=== PATIENT | female | born 1940 | race Caucasian/White ===

== ENCOUNTER 2017-06-08 21:46 | Inpatient (IN) | payer OTHER, MEDICAID ==
[2017-06-08] MEDS ORDERED: TOBRAMYCIN SULFATE 120 MG in NS 100 ML IV 100 ML IV ONE (21:49)
[2017-06-08] MEDS ORDERED: NS 1000 ML 1,000 ML IV SCH (22:00)
[2017-06-09 00:20] LABS: BASOPHILS % (AUTO) 0.4 % (0.2-1.0); EOSINOPHILS # (AUTO) 0.1 x10^3/uL (0.0-0.2); EOSINOPHILS % (AUTO) 2.4 % (0.9-2.9); HEMATOCRIT 33.6 % (36.0-47.0); HEMOGLOBIN 11.2 g/dL (12.0-16.0); LYMPHOCYTES # (AUTO) 1.5 X10^3/uL (1.3-2.9); LYMPHOCYTES % (AUTO) 28.9 % (21.0-51.0); MEAN CORPUSCULAR HEMOGLOBIN 29.3 pg (27.0-34.0); MEAN CORPUSCULAR HGB CONC 33.2 g/dL (33.0-35.0); MEAN CORPUSCULAR VOLUME 88.3 fL (80.0-100.0); MEAN PLATELET VOLUME 8.1 fL (7.4-11.0); MONOCYTES # (AUTO) 0.3 x10^3/uL (0.3-0.8); MONOCYTES % (AUTO) 6.8 % (0.0-13.0); NEUTROPHILS # (AUTO) 3.1 x10^3/uL (2.2-4.8); NEUTROPHILS % (AUTO) 61.5 % (42.0-75.0); PLATELET COUNT 133 X10^3/uL (150.0-450.0); RED BLOOD COUNT 3.81 X10^6/uL (3.5-5.4); RED CELL DISTRIBUTION WIDTH 14.8 % (11.6-16.5); WHITE BLOOD COUNT 5.1 X10^3/uL (3.6-10.0)
[2017-06-09] MEDS: ROCEPHIN VIAL 1 GM 1 GM in NS 50 ML IV + SPIKE MINIBAG* 50 ML IV SCH ×2 (00:22→10:14)
[2017-06-09 00:49] LABS: ALANINE AMINOTRANSFERASE 20 Units/L (12-78); ALBUMIN 2.7 g/dL (3.4-5.0); ALKALINE PHOSPHATASE 91 Units/L (46-116); ASPARTATE AMINO TRANSFERASE 23 Units/L (15-37); BLOOD UREA NITROGEN 23 mg/dL (7-18); CALCIUM 8.1 mg/dL (8.5-10.1); CARBON DIOXIDE 33.3 mmol/L (21-32); CHLORIDE 100 mmol/L (98-107); COR CA(FOR HYPOALB) 9.1 mg/dL (8.5-10.1); CREATININE 1.53 mg/dL (0.55-1.02); GLUCOSE 102 mg/dL (65-99); MAGNESIUM 2.5 mg/dL (1.7-2.9); SODIUM 136 mmol/L (136-145); TOTAL PROTEIN 6.8 g/dL (6.4-8.2); eGFR BLACK RACES 42 (>60); eGFR NON BLACK RACES 35 (>60)
[2017-06-09 01:27] LABS: BILIRUBIN,URINE NEGATIVE (NEGATIVE); BLOOD/HEMOGLOBIN,URINE 3+ (NEGATIVE); GLUCOSE, URINE NEGATIVE (NEGATIVE); KETONES,URINE NEGATIVE (NEGATIVE); LEUKOCYTE ESTERASE ,URINE 3+ (NEGATIVE); NITRITES,URINE POSITIVE (NEGATIVE); PROTEIN,URINE 2+ (NEGATIVE); UROBILINOGEN,URINE NORMAL (NORMAL)
[2017-06-09 01:35] LABS: APPEARANCE,URINE CLOUDY (CLEAR); BACTERIA,URINE 3+ /HPF (NEGATIVE); COLOR,URINE YELLOW (YELLOW); SQUAMOUS EPITHELIAL CELL,UR FEW /HPF (NEGATIVE)
[2017-06-09] MEDS: MORPHINE SULFATE INJ 2 MG IVP PRN (06:05)
--- NOTE | 2017-06-09 06:33 | RAD ---
HISTORY: Altered mental status, UTI Study: Chest one view Comparison: February 21, 2016 Findings: There is a pacemaker present on the right obscuring a portion of the right mid lung. The heart is up per limits normal in size. The aorta is calcified. No congestive heart failure is noted. No acute al veolar infiltrates are identified. The bony thorax is unremarkable with the exception of glenohumera l degenerative joint disease on the left. IMPRESSION: Lungs clear Reported By:
[2017-06-09] MEDS ORDERED: PROVENTIL NEB TX 0.083% 2.5MG/ 3ML IN PRN (09:35)
[2017-06-09] MEDS ORDERED: SENNOSIDES PO SCH (09:45)
[2017-06-09] MEDS ORDERED: DOCUSATE SODIUM PO SCH (09:45)
[2017-06-09] MEDS ORDERED: PATIENT'S HOME MEDICATION (Rivaroxaban [Xarelto] 20 MG) PO SCH (09:45)
[2017-06-09] MEDS: PriLOSEC PO SCH (11:15)
[2017-06-09] MEDS: COLACE CAP 100 MG PO SCH (11:15)
[2017-06-09] MEDS: LOPRESSOR TAB 25 MG PO SCH (11:15)
[2017-06-09] MEDS: MIRALAX POWDER (1 DOSE 17GM) PO SCH ×2 (11:18→11:21)
[2017-06-09] MEDS: NORCO 7.5/325 MG TAB PO PRN ×2 (11:18→21:23)
[2017-06-09] MEDS: CORDARONE TAB 200 MG PO SCH (11:18)
--- NOTE | 2017-06-09 12:11 | RAD ---
HISTORY: Abdominal tenderness, fever Study: Acute abdominal series Comparison: June 09, 2017 12:22 a.m. Findings: The trachea is midline. The cardiac silhouette is upper limits normal in size. The aorta is calcifi ed.. The lungs are well inflated. There is a questionable right upper lobe infiltrate present repre senting a change from the earlier film. The remainder of the lung melgoza are clear. Follow up of thi s area is recommended. The bony thorax is unremarkable. There is a pacemaker present on the right. Flat plate and upright evaluation of the abdomen demonstrates a normal bowel gas pattern. No pneumop eritoneum is identified.. No pathological soft tissue mass or calcification can be observed. The b emily structures are grossly intact. IMPRESSION: 1. Questionable new right upper lobe infiltrate, follow up of this area is recommended 2. No evidence for acute abdominal pathology identified. Reported By:
[2017-06-09] MEDS: LANOXIN PO SCH (13:13)
[2017-06-09] MEDS: XARELTO PO SCH (18:25)
--- NOTE | 2017-06-09 19:50 | DR.H&P ---
H&P - History & Physical for Day of: H&P Date: 06/08/17 - Chief Complaint Chief Complaint: AMS, FEVER, UTI - Allergies Allergies/Adverse Reactions: Allergies Allergy/AdvReac Type Severity Reaction Status Date / Time tramadol AdvReac Verified 06/08/17 22:43 - History of Present Illness History of Present Illness: 77 WF RESIDENT OF [facility], RECENTLY REVOKED HOSPICE CARE, ADMITTED WITH UTI, FEVER AND AMS. PLAN TO ADMIT FOR IV HYDRATION, BLOOD AND URINE CULTURES. IV ATBX, WILL RESUME HOME MEDS. REPEAT AM LABS - Past Medical History Past Medical History: Anemia, Arthritis, CHF, Coronary Artery Disease, Dementia , GERD, Hypertension, Renal Disease - Past Surgical History Surgical History: Appendectomy, Cholecystectomy, Hysterectomy, Joint Replacement , Ortho Surgery, Tonsillectomy, Other - Family History Family Medical History: Diabetes Mellitus, CT, Coronary Artery Disease, Heart Failure, Sudden Cardiac , Hypertension - Social History Does patient currently use any type of tobacco product: No Have you used tobacco products in the last 12 months: No Type of Tobacco Use: None Alcohol Use: None Drug Use: None - Medications Home Medications: Albuterol Neb 2.5MG/ 3Ml [ALBUTEROL NEB 2.5MG/ 3ML *] 1 ea INH Q8H PRN 06/08/17 [History Confirmed 06/08/17] Amiodarone HCl 200 mg PO DAILY 06/08/17 [History Confirmed 06/08/17] Digoxin [LANOXIN TAB 0.125 MG *] 125 mcg PO DAILY 06/08/17 [History Confirmed ] Docusate Sodium [COLACE CAP 100 MG *] 100 mg PO DAILY 06/08/17 [History Confirmed 06/08/17] Gabapentin [NEURONTIN TAB 600 MG *] 600 mg PO TID 06/08/17 [History Confirmed ] Hydrocodone-Acet 7.5 mg/325 mg [NORCO 7.5 MG/325 MG *] 1 ea PO Q4H PRN 06/08/17 [History Confirmed 06/08/17] Lorazepam [ATIVAN 0.5 MG TAB *] 0.5 mg PO Q4H PRN 06/08/17 [History Confirmed ] Metoprolol Tartrate [LOPRESSOR 25 MG *] 12.5 mg PO DAILY 06/08/17 [History Confirmed 06/08/17] Omeprazole 20 mg PO DAILY 06/08/17 [History Confirmed 06/08/17] Ondansetron HCl [ZOFRAN TAB 4 MG *] 4 mg PO Q6H PRN 06/08/17 [History Confirmed 06/08/17] Polyethylene Glycol Pwd Ud [MIRALAX POWDER (17 GM DOSE) *] 17 gm PO Q48H [History Confirmed 06/08/17] Rivaroxaban [Xarelto] 20 mg PO DAILY 06/08/17 [History Confirmed 06/08/17] Sennosides/Docusate Sodium [Senna-S Tablet] 8.6 mg PO DAILY 06/08/17 [History Confirmed 06/08/17] Trazodone HCl [TRAZODONE 50 MG (DESYREL) *] 25 mg PO HS 06/08/17 [History Confirmed 06/08/17] - Review of Systems Constitutional: Fever, Chills, Weakness Eyes: No Symptoms Reported ENT: No Symptoms Reported Respiratory: Shortness of Breath Cardiovascular: No Symptoms Reported Gastrointestinal: Abdominal Pain Genitourinary: Incontinence, Retention Musculoskeletal: Back Pain, Leg Pain Skin: No Symptoms Reported Neurological: Weakness - Physical Exam Vital Signs: Temperature 98.2 F Pulse Rate [Right Brachial] 63 Pulse Rate [Brachial] 65 Pulse Rate 67 Respiratory Rate 18 Blood Pressure [Left Calf] 95/53 Blood Pressure [Left Arm] 119/56 Blood Pressure [Right Arm] 118/58 Blood Pressure 144/69 O2 Sat by Pulse Oximetry 96 Oriented: Normal Eyes: Normal Ear: Normal Nose: Normal Throat: Dry Respiratory: RLL Diminished, LLL Diminished Cardiovascular: Irregular (CONTROLLED RATE) Tenderness: Diffuse Skin: Decreased Turgur Musculoskeletal: Back:Lumbar, Motor Deficit (BILATERAL LOWER EXTREMITY WEAKNESS) Mood Description: Calm Speech Pattern: Clear - Assessment/Plan (1) UTI (urinary tract infection) Qualifiers: Urinary tract infection type: U Hematuria presence: H Indwelling urinary catheter type: I Encounter type: E Status: Acute Plan: ADMIT IV ATBX, URINE CULTURE. IV HYDRATION, REPEAT AM LABS. R/O INFECTIOUS CAUSE CONFUSION, FEVER, WEAKNESS. CBC CMP BC AND UC CXR ON ADMISSION. RESUME HOME MEDS (2) Altered mental status Qualifiers: Altered mental status type: A Coma depth: C Coma timing: C Status: Acute (3) COPD (chronic obstructive pulmonary disease) Qualifiers: COPD type: C Chronic bronchitis type: C Emphysema type: E Status: Chronic (4) Coronary artery disease Qualifiers: Coronary Disease-Associated Artery/Lesion type: C [place] vs. transplanted heart: N Associated angina: A Status: Chronic (5) Essential hypertension, benign Status: Chronic (6) GERD (gastroesophageal reflux disease) Qualifiers: Esophagitis presence: E Status: Chronic
--- NOTE | 2017-06-09 19:51 | PCM.PROG ---
Progress Note - Progress Note for Day of Date: 06/09/17 - Subjective Subjective: ABD PAIN, URINE CULTURE PENDING, CONTINUE IV ATBX - Past Medical Family Social History Past Med/Fam/Surg Hx: No changes since H&P Allergies: Allergies tramadol Adverse Reaction (Verified 06/08/17 22:43) - Review of Systems ROS: No change since H&P - Vital Signs and I&O's Vital Signs: Temperature 98.2 F Pulse Rate [Right Brachial] 63 Pulse Rate [Brachial] 65 Pulse Rate 67 Respiratory Rate 18 Blood Pressure [Left Calf] 95/53 Blood Pressure [Left Arm] 119/56 Blood Pressure [Right Arm] 118/58 Blood Pressure 144/69 O2 Sat by Pulse Oximetry 96 Intake and Output: Intake & Output 06/07/17 06/08/17 06/09/17 06/10/17 11:59 11:59 11:59 11:59 Intake Total 240 748 Output Total 3 Balance 237 748 - Physical Exam Oriented: Normal Eyes: Normal Ear: Normal Nose: Normal Throat: Dry Respiratory: Diminished Cardiovascular: Irregular (CONTROLLED RATE) Tenderness: Diffuse Skin: Decreased Turgur Musculoskeletal: Back:Lumbar, Motor Deficit (BILATERAL LOWER EXTREMITY WEAKNESS) Mood Description: Calm Speech Pattern: Clear - Laboratory and Diagnostics Result Diagrams: 06/08/17 23:40 06/08/17 23:40 Labs: Laboratory WBC 5.1 X10^3/uL (3.6-10.0) 06/08/17 23:40 RBC 3.81 X10^6/uL (3.5-5.4) 06/08/17 23:40 Hgb 11.2 g/dL (12.0-16.0) L 06/08/17 23:40 Hct 33.6 % (36.0-47.0) L 06/08/17 23:40 MCV 88.3 fL (80.0-100.0) 06/08/17 23:40 MCH 29.3 pg (27.0-34.0) 06/08/17 23:40 MCHC 33.2 g/dL (33.0-35.0) 06/08/17 23:40 RDW 14.8 % (11.6-16.5) 06/08/17 23:40 Plt Count 133 X10^3/uL (150.0-450.0) L 06/08/17 23:40 MPV 8.1 fL (7.4-11.0) 06/08/17 23:40 Neut % 61.5 % (42.0-75.0) 06/08/17 23:40 Lymph % 28.9 % (21.0-51.0) 06/08/17 23:40 [place] % 6.8 % (0.0-13.0) 06/08/17 23:40 Eos % 2.4 % (0.9-2.9) 06/08/17 23:40 Baso % 0.4 % (0.2-1.0) 06/08/17 23:40 Neut # 3.1 x10^3/uL (2.2-4.8) 06/08/17 23:40 Lymph # 1.5 X10^3/uL (1.3-2.9) 06/08/17 23:40 [place] # 0.3 x10^3/uL (0.3-0.8) 06/08/17 23:40 Eos # 0.1 x10^3/uL (0.0-0.2) 06/08/17 23:40 Baso # 0.0 X10^3/uL (0.0-0.1) 06/08/17 23:40 Absolute Nucleated RBC 0.0 /100WBC 06/08/17 23:40 Sodium 136 mmol/L (136-145) 06/08/17 23:40 Corrected Sodium TNP 06/08/17 23:40 Potassium 4.5 mmol/L (3.5-5.1) 06/08/17 23:40 Chloride 100 mmol/L (98-107) 06/08/17 23:40 Carbon Dioxide 33.3 mmol/L (21-32) H 06/08/17 23:40 BUN 23 mg/dL (7-18) H 06/08/17 23:40 Creatinine 1.53 mg/dL (0.55-1.02) H 06/08/17 23:40 Est GFR (MDRD) Af Amer 42 (>60) L 06/08/17 23:40 Est GFR (MDRD) Non-Af 35 (>60) L 06/08/17 23:40 Glucose 102 mg/dL (65-99) H 06/08/17 23:40 Calcium 8.1 mg/dL (8.5-10.1) L 06/08/17 23:40 Corrected Calcium 9.1 mg/dL (8.5-10.1) 06/08/17 23:40 Magnesium 2.5 mg/dL (1.7-2.9) 06/08/17 23:40 Total Bilirubin 0.30 mg/dL (0.2-1.0) 06/08/17 23:40 AST 23 Units/L (15-37) 06/08/17 23:40 ALT 20 Units/L (12-78) 06/08/17 23:40 Alkaline Phosphatase 91 Units/L (46-116) 06/08/17 23:40 Total Protein 6.8 g/dL (6.4-8.2) 06/08/17 23:40 Albumin 2.7 g/dL (3.4-5.0) L 06/08/17 23:40 Globulin 4.1 g/dL (2.5-4.5) 06/08/17 23:40 Albumin/Globulin Ratio 0.7 Ratio (1.1-2.1) L 06/08/17 23:40 Specimen Type Clean catch urine 06/09/17 01:14 Urine Color Yellow (YELLOW) 06/09/17 01:14 Urine Appearance Cloudy (CLEAR) 06/09/17 01:14 Urine pH 5.0 (5.0 - 8.0) 06/09/17 01:14 Ur Specific [place] 1.015 (1.000-1.030) 06/09/17 01:14 Urine Protein 2+ (NEGATIVE) 06/09/17 01:14 Urine Glucose (UA) Negative (NEGATIVE) 06/09/17 01:14 Urine Ketones Negative (NEGATIVE) 06/09/17 01:14 Urine Occult Blood 3+ (NEGATIVE) 06/09/17 01:14 Urine Nitrite Positive (NEGATIVE) 06/09/17 01:14 Urine Bilirubin Negative (NEGATIVE) 06/09/17 01:14 Urine Urobilinogen Normal (NORMAL) 06/09/17 01:14 Ur Leukocyte Esterase 3+ (NEGATIVE) 06/09/17 01:14 Urine RBC 10-15 /HPF (NEGATIVE) 06/09/17 01:14 Urine WBC 80-100 /HPF (NEGATIVE) 06/09/17 01:14 Ur Squamous Epith Cells Few /HPF (NEGATIVE) 06/09/17 01:14 Urine Bacteria 3+ /HPF (NEGATIVE) 06/09/17 01:14 Ur Culture Indicated? Yes/culture set up 06/09/17 01:14 Digoxin 1.34 ng/mL (0.9-2) 06/09/17 11:49 - Plan (1) UTI (urinary tract infection) Status: Acute Qualifiers: Urinary tract infection type: U Hematuria presence: H Indwelling urinary catheter type: I Encounter type: E Plan: URINE CULTURE PENDING, CONTINUE IV HYDRATION. IV ATBX. PELVIC PAIN TODAY , ABD SERIES (2) Altered mental status Status: Acute Qualifiers: Altered mental status type: A Coma depth: C Coma timing: C Plan: IMPROVING, CONTINUE TO MONITOR (3) COPD (chronic obstructive pulmonary disease) Status: Chronic Qualifiers: COPD type: C Chronic bronchitis type: C Emphysema type: E (4) Coronary artery disease Status: Chronic Qualifiers: Coronary Disease-Associated Artery/Lesion type: C [place] vs. transplanted heart: N Associated angina: A (5) Essential hypertension, benign Status: Chronic (6) GERD (gastroesophageal reflux disease) Status: Chronic Qualifiers: Esophagitis presence: E
[2017-06-09] MEDS: SENOKOT PO SCH (21:22)
[2017-06-09] MEDS: ATIVAN TAB 0.5 MG PO PRN (21:22)
[2017-06-10 06:11] LABS: BASOPHILS % (AUTO) 0.2 % (0.2-1.0); EOSINOPHILS # (AUTO) 0.2 x10^3/uL (0.0-0.2); EOSINOPHILS % (AUTO) 3.9 % (0.9-2.9); HEMATOCRIT 28.8 % (36.0-47.0); HEMOGLOBIN 9.9 g/dL (12.0-16.0); LYMPHOCYTES # (AUTO) 1.1 X10^3/uL (1.3-2.9); LYMPHOCYTES % (AUTO) 27.4 % (21.0-51.0); MEAN CORPUSCULAR HGB CONC 34.6 g/dL (33.0-35.0); MEAN CORPUSCULAR VOLUME 86.7 fL (80.0-100.0); MEAN PLATELET VOLUME 8.5 fL (7.4-11.0); MONOCYTES # (AUTO) 0.3 x10^3/uL (0.3-0.8); MONOCYTES % (AUTO) 7.8 % (0.0-13.0); NEUTROPHILS # (AUTO) 2.4 x10^3/uL (2.2-4.8); NEUTROPHILS % (AUTO) 60.7 % (42.0-75.0); PLATELET COUNT 123 X10^3/uL (150.0-450.0); RED BLOOD COUNT 3.32 X10^6/uL (3.5-5.4); RED CELL DISTRIBUTION WIDTH 14.9 % (11.6-16.5)
[2017-06-10] MEDS: NS 500 ML IV 500 ML IV SCH (06:12)
[2017-06-10] MEDS ORDERED: MAALOX or MYLANTA PO PRN (06:21)
--- NOTE | 2017-06-10 06:50 | RAD ---
HISTORY: Pneumonia Study: Single-view chest, done portably Comparison: June 09, 2017 at 11:57 a.m. Findings: Right-sided pacemaker is present with intact leads. The trachea is midline. There is cardiomegaly wi th atherosclerotic calcification and uncoiling of the aortic arch. Improved aeration is seen in the right upper lobe. No new infiltrate, CHF, pleural fluid or pneumothorax is seen. Osseous structures are intact. IMPRESSION: Improved aeration in the right upper lobe. No new infiltrates are seen. Hypertensive configuration. Reported By:
[2017-06-10] MEDS: ZOFRAN TAB 4 MG PO PRN (07:11)
[2017-06-10 07:21] LABS: ALANINE AMINOTRANSFERASE 17 Units/L (12-78); ALBUMIN 2.5 g/dL (3.4-5.0); ALKALINE PHOSPHATASE 77 Units/L (46-116); ASPARTATE AMINO TRANSFERASE 18 Units/L (15-37); BLOOD UREA NITROGEN 15 mg/dL (7-18); CALCIUM 7.7 mg/dL (8.5-10.1); CHLORIDE 102 mmol/L (98-107); COR CA(FOR HYPOALB) 8.9 mg/dL (8.5-10.1); GLUCOSE 80 mg/dL (65-99); SODIUM 137 mmol/L (136-145); TOTAL PROTEIN 6.3 g/dL (6.4-8.2); eGFR BLACK RACES 56 (>60); eGFR NON BLACK RACES 46 (>60)
[2017-06-10] MEDS: LANOXIN PO SCH (09:13)
[2017-06-10] MEDS: COLACE CAP 100 MG PO SCH (09:15)
[2017-06-10] MEDS: ROCEPHIN VIAL 1 GM 1 GM in NS 50 ML IV + SPIKE MINIBAG* 50 ML IV SCH (09:15)
[2017-06-10] MEDS: LOPRESSOR TAB 25 MG PO SCH (09:15)
[2017-06-10] MEDS: ATIVAN TAB 0.5 MG PO PRN (09:15)
[2017-06-10] MEDS: PriLOSEC PO SCH (09:15)
[2017-06-10] MEDS: CORDARONE TAB 200 MG PO SCH (09:16)
[2017-06-10] MEDS: PEPCID 20 MG IV PREMIX* 20 MG/50 ML BAG IV SCH ×2 (10:08→21:14)
[2017-06-10 10:31] VITALS: BMI 22.4
--- NOTE | 2017-06-10 13:31 | PCM.PROG ---
Progress Note - Progress Note for Day of Date: 06/10/17 - Subjective Subjective: ABD PAIN, ABD SERIES NORMAL, CONTINUED WITH RIGHT MID ABD TENDERNESS AND RIGHT FLANK TENDERNESS. CT ABD PELVIS TODAY, R/O PYELONEPHRITIS. CONTINUE IV ABTX, IV HYDRATION - Past Medical Family Social History Past Med/Fam/Surg Hx: No changes since H&P Allergies: Allergies tramadol Adverse Reaction (Verified 06/08/17 22:43) - Review of Systems ROS: No change since H&P - Vital Signs and I&O's Vital Signs: Temperature 98.3 F Pulse Rate [Right Brachial] 60 Pulse Rate [Brachial] 65 Pulse Rate 68 Respiratory Rate 18 Blood Pressure [Left Calf] 95/53 Blood Pressure [Left Arm] 119/56 Blood Pressure [Right Arm] 156/77 Blood Pressure 144/69 O2 Sat by Pulse Oximetry 93 Intake and Output: Intake & Output 06/08/17 06/09/17 06/10/17 06/11/17 11:59 11:59 11:59 11:59 Intake Total 240 1048 Output Total 3 3 Balance 237 1045 - Physical Exam Oriented: Normal Eyes: Normal Ear: Normal Nose: Normal Throat: Dry Respiratory: Diminished Cardiovascular: Irregular (CONTROLLED RATE) Tenderness: Diffuse Skin: Decreased Turgur Musculoskeletal: Back:Lumbar, Motor Deficit (BILATERAL LOWER EXTREMITY WEAKNESS) Mood Description: Calm Speech Pattern: Clear, Appropriate - Laboratory and Diagnostics Result Diagrams: 06/10/17 03:35 06/10/17 03:35 Labs: 06/08/17 23:50 Blood Blood Culture - Preliminary 06/08/17 23:40 Blood Blood Culture - Preliminary 06/09/17 01:14 Urine,Clean Catch Urine Culture - Final Laboratory WBC 4.0 X10^3/uL (3.6-10.0) 06/10/17 03:35 RBC 3.32 X10^6/uL (3.5-5.4) L 06/10/17 03:35 Hgb 9.9 g/dL (12.0-16.0) L 06/10/17 03:35 Hct 28.8 % (36.0-47.0) L 06/10/17 03:35 MCV 86.7 fL (80.0-100.0) 06/10/17 03:35 MCH 30.0 pg (27.0-34.0) 06/10/17 03:35 MCHC 34.6 g/dL (33.0-35.0) 06/10/17 03:35 RDW 14.9 % (11.6-16.5) 06/10/17 03:35 Plt Count 123 X10^3/uL (150.0-450.0) L 06/10/17 03:35 MPV 8.5 fL (7.4-11.0) 06/10/17 03:35 Neut % 60.7 % (42.0-75.0) 06/10/17 03:35 Lymph % 27.4 % (21.0-51.0) 06/10/17 03:35 [place] % 7.8 % (0.0-13.0) 06/10/17 03:35 Eos % 3.9 % (0.9-2.9) H 06/10/17 03:35 Baso % 0.2 % (0.2-1.0) 06/10/17 03:35 Neut # 2.4 x10^3/uL (2.2-4.8) 06/10/17 03:35 Lymph # 1.1 X10^3/uL (1.3-2.9) L 06/10/17 03:35 [place] # 0.3 x10^3/uL (0.3-0.8) 06/10/17 03:35 Eos # 0.2 x10^3/uL (0.0-0.2) 06/10/17 03:35 Baso # 0.0 X10^3/uL (0.0-0.1) 06/10/17 03:35 Absolute Nucleated RBC 0.1 /100WBC 06/10/17 03:35 Sodium 137 mmol/L (136-145) 06/10/17 03:35 Corrected Sodium TNP 06/10/17 03:35 Potassium 4.7 mmol/L (3.5-5.1) 06/10/17 03:35 Chloride 102 mmol/L (98-107) 06/10/17 03:35 Carbon Dioxide 31.0 mmol/L (21-32) 06/10/17 03:35 BUN 15 mg/dL (7-18) 06/10/17 03:35 Creatinine 1.20 mg/dL (0.55-1.02) H 06/10/17 03:35 Est GFR (MDRD) Af Amer 56 (>60) L 06/10/17 03:35 Est GFR (MDRD) Non-Af 46 (>60) L 06/10/17 03:35 Glucose 80 mg/dL (65-99) 06/10/17 03:35 Calcium 7.7 mg/dL (8.5-10.1) L 06/10/17 03:35 Corrected Calcium 8.9 mg/dL (8.5-10.1) 06/10/17 03:35 Magnesium 2.5 mg/dL (1.7-2.9) 06/08/17 23:40 Total Bilirubin 0.20 mg/dL (0.2-1.0) 06/10/17 03:35 AST 18 Units/L (15-37) 06/10/17 03:35 ALT 17 Units/L (12-78) 06/10/17 03:35 Alkaline Phosphatase 77 Units/L (46-116) 06/10/17 03:35 Total Protein 6.3 g/dL (6.4-8.2) L 06/10/17 03:35 Albumin 2.5 g/dL (3.4-5.0) L 06/10/17 03:35 Globulin 3.8 g/dL (2.5-4.5) 06/10/17 03:35 Albumin/Globulin Ratio 0.7 Ratio (1.1-2.1) L 06/10/17 03:35 Specimen Type Clean catch urine 06/09/17 01:14 Urine Color Yellow (YELLOW) 06/09/17 01:14 Urine Appearance Cloudy (CLEAR) 06/09/17 01:14 Urine pH 5.0 (5.0 - 8.0) 06/09/17 01:14 Ur Specific [place] 1.015 (1.000-1.030) 06/09/17 01:14 Urine Protein 2+ (NEGATIVE) 06/09/17 01:14 Urine Glucose (UA) Negative (NEGATIVE) 06/09/17 01:14 Urine Ketones Negative (NEGATIVE) 06/09/17 01:14 Urine Occult Blood 3+ (NEGATIVE) 06/09/17 01:14 Urine Nitrite Positive (NEGATIVE) 06/09/17 01:14 Urine Bilirubin Negative (NEGATIVE) 06/09/17 01:14 Urine Urobilinogen Normal (NORMAL) 06/09/17 01:14 Ur Leukocyte Esterase 3+ (NEGATIVE) 06/09/17 01:14 Urine RBC 10-15 /HPF (NEGATIVE) 06/09/17 01:14 Urine WBC 80-100 /HPF (NEGATIVE) 06/09/17 01:14 Ur Squamous Epith Cells Few /HPF (NEGATIVE) 06/09/17 01:14 Urine Bacteria 3+ /HPF (NEGATIVE) 06/09/17 01:14 Ur Culture Indicated? Yes/culture set up 06/09/17 01:14 Digoxin 1.34 ng/mL (0.9-2) 06/09/17 11:49 - Plan (1) UTI (urinary tract infection) Status: Acute Qualifiers: Urinary tract infection type: U Hematuria presence: H Indwelling urinary catheter type: I Encounter type: E Plan: URINE CULTURE PENDING, CONTINUE IV HYDRATION. IV ATBX. PELVIC PAIN TODAY , FLANK PAIN,. CT ABD PELVIS (2) Altered mental status Status: Acute Qualifiers: Altered mental status type: A Coma depth: C Coma timing: C Plan: IMPROVING, CONTINUE TO MONITOR (3) COPD (chronic obstructive pulmonary disease) Status: Chronic Qualifiers: COPD type: C Chronic bronchitis type: C Emphysema type: E (4) Coronary artery disease Status: Chronic Qualifiers: Coronary Disease-Associated Artery/Lesion type: C [place] vs. transplanted heart: N Associated angina: A (5) Essential hypertension, benign Status: Chronic (6) GERD (gastroesophageal reflux disease) Status: Chronic Qualifiers: Esophagitis presence: E
[2017-06-10] MEDS ORDERED: NS 100 ML IV 0 ML IV ONE (17:30)
[2017-06-10] MEDS: XARELTO PO SCH (18:08)
[2017-06-10] MEDS: NORCO 7.5/325 MG TAB PO PRN (20:04)
[2017-06-10] MEDS: SENOKOT PO SCH (21:13)
--- NOTE | 2017-06-10 22:46 | CT ---
HISTORY: Altered mental status, UTI, right-sided abdominal pain Study: CT abdomen and pelvis without contrast Comparison: None Technique: Multiple axial images of the abdomen and pelvis were obtained without IV contrast. Dose reduction techniques including Automated Exposure Control (AEC) and adjustment of mA and kV were utilized. Findings: Please note evaluation is limited without use of IV contrast. There is bibasilar atelectasis. There are calcifications of the coronary arteries and mitral valve w ith mild cardiomegaly noted. The spleen, pancreas, kidneys, and adrenal glands are unremarkable in their unenhanced CT appearance. The gallbladder is removed. There is prominence of the intra and ext ra hepatic bile ducts which may be related to previous cholecystectomy as well as age. No renal calc mikael or obstructive uropathy identified. No free intraperitoneal air. No evidence of intestinal obstruction or inflammation. There is a large volume of retained stool present. No free fluid identified. The appendix is not visualized. There is a chronic appearing compression fracture of T12 as well as mild compression deformities of T9 and T10 that appear chronic. The vascular structures are unremarkable. No pathologically enlarged lymph nodes are identified. If evaluation of the pelvis is limited due to streak artifact from velia ent's right hip prosthesis. The visualized urinary bladder is unremarkable. IMPRESSION: 1. No renal calculi or obstructive uropathy. 2 prominence of the biliary tree, likely physiologic related to previous cholecystectomy and patient 's age. 3. Large volume of retained stool. 4. Additional findings as described. Reported By:
[2017-06-11] MEDS: NORCO 7.5/325 MG TAB PO PRN (02:26)
[2017-06-11] MEDS: NS 500 ML IV 500 ML IV SCH ×4 (05:15→22:39)
[2017-06-11 06:10] LABS: BASOPHILS % (AUTO) 0.5 % (0.2-1.0); EOSINOPHILS # (AUTO) 0.1 x10^3/uL (0.0-0.2); EOSINOPHILS % (AUTO) 3.5 % (0.9-2.9); HEMATOCRIT 31.7 % (36.0-47.0); HEMOGLOBIN 10.7 g/dL (12.0-16.0); LYMPHOCYTES # (AUTO) 1.2 X10^3/uL (1.3-2.9); LYMPHOCYTES % (AUTO) 29.1 % (21.0-51.0); MEAN CORPUSCULAR HEMOGLOBIN 29.1 pg (27.0-34.0); MEAN CORPUSCULAR HGB CONC 33.6 g/dL (33.0-35.0); MEAN CORPUSCULAR VOLUME 86.4 fL (80.0-100.0); MEAN PLATELET VOLUME 8.5 fL (7.4-11.0); MONOCYTES # (AUTO) 0.3 x10^3/uL (0.3-0.8); MONOCYTES % (AUTO) 6.7 % (0.0-13.0); NEUTROPHILS # (AUTO) 2.4 x10^3/uL (2.2-4.8); NEUTROPHILS % (AUTO) 60.2 % (42.0-75.0); PLATELET COUNT 145 X10^3/uL (150.0-450.0); RED BLOOD COUNT 3.67 X10^6/uL (3.5-5.4); RED CELL DISTRIBUTION WIDTH 14.9 % (11.6-16.5)
[2017-06-11 06:42] LABS: ALANINE AMINOTRANSFERASE 17 Units/L (12-78); ALBUMIN 2.8 g/dL (3.4-5.0); ALKALINE PHOSPHATASE 88 Units/L (46-116); ASPARTATE AMINO TRANSFERASE 20 Units/L (15-37); BLOOD UREA NITROGEN 12 mg/dL (7-18); CALCIUM 8.4 mg/dL (8.5-10.1); CARBON DIOXIDE 30.8 mmol/L (21-32); CHLORIDE 100 mmol/L (98-107); COR CA(FOR HYPOALB) 9.4 mg/dL (8.5-10.1); CREATININE 1.12 mg/dL (0.55-1.02); GLUCOSE 86 mg/dL (65-99); SODIUM 136 mmol/L (136-145); TOTAL PROTEIN 7.1 g/dL (6.4-8.2); eGFR BLACK RACES > 60 (>60); eGFR NON BLACK RACES 50 (>60)
[2017-06-11] MEDS: ROCEPHIN VIAL 1 GM 1 GM in NS 50 ML IV + SPIKE MINIBAG* 50 ML IV SCH ×2 (07:54→09:42)
[2017-06-11] MEDS: PEPCID 20 MG IV PREMIX* 20 MG/50 ML BAG IV SCH ×3 (07:55→21:45)
[2017-06-11] MEDS: LANOXIN PO SCH (08:06)
[2017-06-11] MEDS: COLACE CAP 100 MG PO SCH (08:08)
[2017-06-11] MEDS: ZOFRAN TAB 4 MG PO PRN (08:09)
[2017-06-11] MEDS: LOPRESSOR TAB 25 MG PO SCH (08:09)
[2017-06-11] MEDS: PriLOSEC PO SCH (08:10)
[2017-06-11] MEDS: CORDARONE TAB 200 MG PO SCH (08:11)
[2017-06-11] MEDS ORDERED: DULCOLAX SUPPOSITORY 10 MG RECTAL ONE (09:14)
[2017-06-11] MEDS: MIRALAX POWDER (1 DOSE 17GM) PO SCH (09:38)
[2017-06-11] MEDS: MORPHINE SULFATE INJ 2 MG IVP PRN (09:39)
[2017-06-11] MEDS: ATIVAN TAB 0.5 MG PO PRN (12:45)
[2017-06-11 13:59] LABS: CRYPTOSPORIDIUM PARVUM ANTIGEN NEGATIVE (NEGATIVE); GIARDIA LAMBLIA ANTIGEN NEGATIVE (NEGATIVE)
--- NOTE | 2017-06-11 18:20 | PCM.PROG ---
Progress Note - Progress Note for Day of Date: 06/11/17 - Subjective Subjective: patient is a 77-year-old white female who was admitted from [facility] for her with UTI and abdominal pain. Patient had a CT scan of the abdomen and pelvis to rule out pyelonephritis which revealed constipation. We'll continue IV antibiotics, hydration and Dulcolax suppositories. - Past Medical Family Social History Past Med/Fam/Surg Hx: No changes since H&P Allergies: Allergies tramadol Adverse Reaction (Verified 06/08/17 22:43) - Review of Systems ROS: No change since H&P - Vital Signs and I&O's Vital Signs: Temperature 98.2 F Pulse Rate [Right Brachial] 61 Pulse Rate [Brachial] 65 Pulse Rate 63 Respiratory Rate 16 Blood Pressure [Left Calf] 95/53 Blood Pressure [Left Arm] 119/56 Blood Pressure [Right Arm] 148/76 Blood Pressure 144/69 O2 Sat by Pulse Oximetry 96 Intake and Output: Intake & Output 06/09/17 06/10/17 06/11/17 06/12/17 11:59 11:59 11:59 11:59 Intake Total 240 1048 1222 120 Output Total 3 3 Balance 237 1045 1222 120 - Physical Exam Oriented: Normal Eyes: Normal Ear: Normal Nose: Normal Throat: Dry Respiratory: Diminished Cardiovascular: Irregular (CONTROLLED RATE) Tenderness: Diffuse Skin: Decreased Turgur Musculoskeletal: Back:Lumbar, Motor Deficit (BILATERAL LOWER EXTREMITY WEAKNESS) Mood Description: Calm Speech Pattern: Clear, Appropriate - Laboratory and Diagnostics Result Diagrams: 06/11/17 04:20 06/11/17 04:20 Labs: 06/11/17 11:40 Stool - Final 06/08/17 23:40 Blood Blood Culture - Preliminary 06/08/17 23:50 Blood Blood Culture - Preliminary 06/09/17 01:14 Urine,Clean Catch Urine Culture - Final Laboratory WBC 4.0 X10^3/uL (3.6-10.0) 06/11/17 04:20 RBC 3.67 X10^6/uL (3.5-5.4) 06/11/17 04:20 Hgb 10.7 g/dL (12.0-16.0) L 06/11/17 04:20 Hct 31.7 % (36.0-47.0) L 06/11/17 04:20 MCV 86.4 fL (80.0-100.0) 06/11/17 04:20 MCH 29.1 pg (27.0-34.0) 06/11/17 04:20 MCHC 33.6 g/dL (33.0-35.0) 06/11/17 04:20 RDW 14.9 % (11.6-16.5) 06/11/17 04:20 Plt Count 145 X10^3/uL (150.0-450.0) L 06/11/17 04:20 MPV 8.5 fL (7.4-11.0) 06/11/17 04:20 Neut % 60.2 % (42.0-75.0) 06/11/17 04:20 Lymph % 29.1 % (21.0-51.0) 06/11/17 04:20 [place] % 6.7 % (0.0-13.0) 06/11/17 04:20 Eos % 3.5 % (0.9-2.9) H 06/11/17 04:20 Baso % 0.5 % (0.2-1.0) 06/11/17 04:20 Neut # 2.4 x10^3/uL (2.2-4.8) 06/11/17 04:20 Lymph # 1.2 X10^3/uL (1.3-2.9) L 06/11/17 04:20 [place] # 0.3 x10^3/uL (0.3-0.8) 06/11/17 04:20 Eos # 0.1 x10^3/uL (0.0-0.2) 06/11/17 04:20 Baso # 0.0 X10^3/uL (0.0-0.1) 06/11/17 04:20 Absolute Nucleated RBC 0.1 /100WBC 06/11/17 04:20 Sodium 136 mmol/L (136-145) 06/11/17 04:20 Corrected Sodium TNP 06/11/17 04:20 Potassium 4.6 mmol/L (3.5-5.1) 06/11/17 04:20 Chloride 100 mmol/L (98-107) 06/11/17 04:20 Carbon Dioxide 30.8 mmol/L (21-32) 06/11/17 04:20 BUN 12 mg/dL (7-18) 06/11/17 04:20 Creatinine 1.12 mg/dL (0.55-1.02) H 06/11/17 04:20 Est GFR (MDRD) Af Amer > 60 (>60) 06/11/17 04:20 Est GFR (MDRD) Non-Af 50 (>60) L 06/11/17 04:20 Glucose 86 mg/dL (65-99) 06/11/17 04:20 Calcium 8.4 mg/dL (8.5-10.1) L 06/11/17 04:20 Corrected Calcium 9.4 mg/dL (8.5-10.1) 06/11/17 04:20 Magnesium 2.5 mg/dL (1.7-2.9) 06/08/17 23:40 Total Bilirubin 0.30 mg/dL (0.2-1.0) 06/11/17 04:20 AST 20 Units/L (15-37) 06/11/17 04:20 ALT 17 Units/L (12-78) 06/11/17 04:20 Alkaline Phosphatase 88 Units/L (46-116) 06/11/17 04:20 Total Protein 7.1 g/dL (6.4-8.2) 06/11/17 04:20 Albumin 2.8 g/dL (3.4-5.0) L 06/11/17 04:20 Globulin 4.3 g/dL (2.5-4.5) 06/11/17 04:20 Albumin/Globulin Ratio 0.7 Ratio (1.1-2.1) L 06/11/17 04:20 Specimen Type Clean catch urine 06/09/17 01:14 Urine Color Yellow (YELLOW) 06/09/17 01:14 Urine Appearance Cloudy (CLEAR) 06/09/17 01:14 Urine pH 5.0 (5.0 - 8.0) 06/09/17 01:14 Ur Specific [place] 1.015 (1.000-1.030) 06/09/17 01:14 Urine Protein 2+ (NEGATIVE) 06/09/17 01:14 Urine Glucose (UA) Negative (NEGATIVE) 06/09/17 01:14 Urine Ketones Negative (NEGATIVE) 06/09/17 01:14 Urine Occult Blood 3+ (NEGATIVE) 06/09/17 01:14 Urine Nitrite Positive (NEGATIVE) 06/09/17 01:14 Urine Bilirubin Negative (NEGATIVE) 06/09/17 01:14 Urine Urobilinogen Normal (NORMAL) 06/09/17 01:14 Ur Leukocyte Esterase 3+ (NEGATIVE) 06/09/17 01:14 Urine RBC 10-15 /HPF (NEGATIVE) 06/09/17 01:14 Urine WBC 80-100 /HPF (NEGATIVE) 06/09/17 01:14 Ur Squamous Epith Cells Few /HPF (NEGATIVE) 06/09/17 01:14 Urine Bacteria 3+ /HPF (NEGATIVE) 06/09/17 01:14 Ur Culture Indicated? Yes/culture set up 06/09/17 01:14 Stool Description 50g unformed green 06/11/17 11:40 Stool for White Cells No wbc's seen (None) 06/11/17 11:40 Stl C. diff Tox B Gene Positive (NEGATIVE) A 06/11/17 11:40 Stl C. diff [id number] Negative (NEGATIVE) 06/11/17 11:40 Digoxin 1.34 ng/mL (0.9-2) 06/09/17 11:49 Cryptosporid parvum Ag Negative (NEGATIVE) 06/11/17 11:40 E. histolytica Antigen Negative (NEGATIVE) 06/11/17 11:40 Giardia lamblia Ag Negative (NEGATIVE) 06/11/17 11:40 - Plan (1) UTI (urinary tract infection) Status: Acute Qualifiers: Urinary tract infection type: U Hematuria presence: H Indwelling urinary catheter type: I Encounter type: E Plan: continue with IV atbx, iv hydration (2) Altered mental status Status: Acute Qualifiers: Altered mental status type: A Coma depth: C Coma timing: C Plan: IMPROVING, CONTINUE TO MONITOR (3) COPD (chronic obstructive pulmonary disease) Status: Chronic Qualifiers: COPD type: C Chronic bronchitis type: C Emphysema type: E (4) Coronary artery disease Status: Chronic Qualifiers: Coronary Disease-Associated Artery/Lesion type: C [place] vs. transplanted heart: N Associated angina: A (5) Essential hypertension, benign Status: Chronic (6) GERD (gastroesophageal reflux disease) Status: Chronic Qualifiers: Esophagitis presence: E (7) Constipation Status: Acute Qualifiers: Constipation type: C Plan: po stool softners, suppositories
[2017-06-11] MEDS: XARELTO PO SCH (18:23)
[2017-06-11] MEDS: SENOKOT PO SCH (21:45)
[2017-06-12] MEDS: MORPHINE SULFATE INJ 2 MG IVP PRN ×2 (02:10→06:01)
[2017-06-12] MEDS: ATIVAN TAB 0.5 MG PO PRN ×2 (02:14→16:00)
[2017-06-12 05:13] LABS: BASOPHILS % (AUTO) 0.3 % (0.2-1.0); EOSINOPHILS # (AUTO) 0.1 x10^3/uL (0.0-0.2); EOSINOPHILS % (AUTO) 3.1 % (0.9-2.9); HEMOGLOBIN 11.7 g/dL (12.0-16.0); LYMPHOCYTES # (AUTO) 1.1 X10^3/uL (1.3-2.9); MEAN CORPUSCULAR HEMOGLOBIN 29.6 pg (27.0-34.0); MEAN CORPUSCULAR HGB CONC 34.3 g/dL (33.0-35.0); MEAN CORPUSCULAR VOLUME 86.3 fL (80.0-100.0); MEAN PLATELET VOLUME 7.9 fL (7.4-11.0); MONOCYTES # (AUTO) 0.3 x10^3/uL (0.3-0.8); MONOCYTES % (AUTO) 6.2 % (0.0-13.0); NEUTROPHILS % (AUTO) 65.4 % (42.0-75.0); PLATELET COUNT 159 X10^3/uL (150.0-450.0); RED BLOOD COUNT 3.94 X10^6/uL (3.5-5.4); RED CELL DISTRIBUTION WIDTH 14.8 % (11.6-16.5); WHITE BLOOD COUNT 4.6 X10^3/uL (3.6-10.0)
[2017-06-12 05:26] LABS: ALANINE AMINOTRANSFERASE 17 Units/L (12-78); ALKALINE PHOSPHATASE 93 Units/L (46-116); ASPARTATE AMINO TRANSFERASE 22 Units/L (15-37); BLOOD UREA NITROGEN 11 mg/dL (7-18); CALCIUM 8.7 mg/dL (8.5-10.1); CARBON DIOXIDE 28.3 mmol/L (21-32); CHLORIDE 100 mmol/L (98-107); COR CA(FOR HYPOALB) 9.5 mg/dL (8.5-10.1); CREATININE 1.09 mg/dL (0.55-1.02); GLUCOSE 83 mg/dL (65-99); SODIUM 135 mmol/L (136-145); TOTAL PROTEIN 7.4 g/dL (6.4-8.2); eGFR BLACK RACES > 60 (>60); eGFR NON BLACK RACES 51 (>60)
[2017-06-12] MEDS: NS 500 ML IV 500 ML IV SCH (06:42)
[2017-06-12] MEDS: CORDARONE TAB 200 MG PO SCH (10:02)
[2017-06-12] MEDS: LANOXIN PO SCH (10:02)
[2017-06-12] MEDS: COLACE CAP 100 MG PO SCH (10:02)
[2017-06-12] MEDS: PEPCID 20 MG IV PREMIX* 20 MG/50 ML BAG IV SCH (10:03)
[2017-06-12] MEDS: LOPRESSOR TAB 25 MG PO SCH (10:03)
[2017-06-12] MEDS: ROCEPHIN VIAL 1 GM 1 GM in NS 50 ML IV + SPIKE MINIBAG* 50 ML IV SCH (10:03)
[2017-06-12] MEDS: PriLOSEC PO SCH (10:03)
--- NOTE | 2017-06-12 10:34 | RAD ---
HISTORY: Constipation Study: KUB Comparison: January 01, 2016 Findings: Evaluation of the abdomen demonstrates a normal bowel gas pattern. moderate stool is present in the left colon. No pathological soft tissue mass or calcification can be observed. The bony structures are grossly intact. IMPRESSION: 1. No evidence for acute abdominal pathology identified. 2. Moderate stool Reported By:
[2017-06-12 12:51] VITALS: BP 163/76
[2017-06-12] MEDS: NORCO 7.5/325 MG TAB PO PRN (13:49)
--- NOTE | 2017-06-15 18:57 | PCM.DCPLAN ---
Discharge Summary - Admission Date Date of Admission: 06/08/17 - Discharge Date Discharge Date: 06/12/17 - Admission Diagnoses (1) UTI (urinary tract infection) Status: Acute (2) Altered mental status Status: Acute (3) COPD (chronic obstructive pulmonary disease) Status: Chronic (4) Coronary artery disease Status: Chronic (5) Essential hypertension, benign Status: Chronic (6) GERD (gastroesophageal reflux disease) Status: Chronic (7) Constipation Status: Acute - Discharge Diagnoses Discharge Diagnosis: same as admission - Discharge Medications Discharge Medications: Albuterol Neb 2.5MG/ 3Ml [ALBUTEROL NEB 2.5MG/ 3ML *] 1 ea INH Q8H PRN 06/08/17 [History] Amiodarone HCl 200 mg PO DAILY 06/08/17 [History] Digoxin [LANOXIN TAB 0.125 MG *] 125 mcg PO DAILY 06/08/17 [History] Docusate Sodium [COLACE CAP 100 MG *] 100 mg PO DAILY 06/08/17 [History] Gabapentin [NEURONTIN TAB 600 MG *] 600 mg PO TID 06/08/17 [History] Hydrocodone-Acet 7.5 mg/325 mg [NORCO 7.5 MG/325 MG *] 1 ea PO Q4H PRN 06/08/17 [History] Lorazepam [ATIVAN 0.5 MG TAB *] 0.5 mg PO Q4H PRN 06/08/17 [History] Metoprolol Tartrate [LOPRESSOR 25 MG *] 12.5 mg PO DAILY 06/08/17 [History] Omeprazole 20 mg PO DAILY 06/08/17 [History] Ondansetron HCl [ZOFRAN TAB 4 MG *] 4 mg PO Q6H PRN 06/08/17 [History] Polyethylene Glycol Pwd Ud [MIRALAX POWDER (17 GM DOSE) *] 17 gm PO Q48H [History] Rivaroxaban [Xarelto] 20 mg PO DAILY 06/08/17 [History] Sennosides/Docusate Sodium [Senna-S Tablet] 8.6 mg PO DAILY 06/08/17 [History] Trazodone HCl [TRAZODONE 50 MG (DESYREL) *] 25 mg PO HS 06/08/17 [History] Nitrofurantoin Macro [Macrobid Cap 100 mg Ext Rel] 100 mg PO BID #20 cap [Rx] - Hospital Course Vital Signs: Temperature 98.9 F Pulse Rate [Right Brachial] 61 Pulse Rate [Brachial] 65 Pulse Rate 63 Respiratory Rate 18 Blood Pressure [Left Calf] 95/53 Blood Pressure [Left Arm] 140/74 Blood Pressure [Right Arm] 163/76 Blood Pressure 144/69 O2 Sat by Pulse Oximetry 93 Latest Lab Results: Laboratory Last Values WBC 4.6 X10^3/uL (3.6-10.0) 06/12/17 04:45 RBC 3.94 X10^6/uL (3.5-5.4) 06/12/17 04:45 Hgb 11.7 g/dL (12.0-16.0) L 06/12/17 04:45 Hct 34.0 % (36.0-47.0) L 06/12/17 04:45 MCV 86.3 fL (80.0-100.0) 06/12/17 04:45 MCH 29.6 pg (27.0-34.0) 06/12/17 04:45 MCHC 34.3 g/dL (33.0-35.0) 06/12/17 04:45 RDW 14.8 % (11.6-16.5) 06/12/17 04:45 Plt Count 159 X10^3/uL (150.0-450.0) 06/12/17 04:45 MPV 7.9 fL (7.4-11.0) 06/12/17 04:45 Neut % 65.4 % (42.0-75.0) 06/12/17 04:45 Lymph % 25.0 % (21.0-51.0) 06/12/17 04:45 [place] % 6.2 % (0.0-13.0) 06/12/17 04:45 Eos % 3.1 % (0.9-2.9) H 06/12/17 04:45 Baso % 0.3 % (0.2-1.0) 06/12/17 04:45 Neut # 3.0 x10^3/uL (2.2-4.8) 06/12/17 04:45 Lymph # 1.1 X10^3/uL (1.3-2.9) L 06/12/17 04:45 [place] # 0.3 x10^3/uL (0.3-0.8) 06/12/17 04:45 Eos # 0.1 x10^3/uL (0.0-0.2) 06/12/17 04:45 Baso # 0.0 X10^3/uL (0.0-0.1) 06/12/17 04:45 Absolute Nucleated RBC 0.1 /100WBC 06/12/17 04:45 Sodium 135 mmol/L (136-145) L 06/12/17 04:45 Corrected Sodium TNP 06/12/17 04:45 Potassium 4.7 mmol/L (3.5-5.1) 06/12/17 04:45 Chloride 100 mmol/L (98-107) 06/12/17 04:45 Carbon Dioxide 28.3 mmol/L (21-32) 06/12/17 04:45 BUN 11 mg/dL (7-18) 06/12/17 04:45 Creatinine 1.09 mg/dL (0.55-1.02) H 06/12/17 04:45 Est GFR (MDRD) Af Amer > 60 (>60) 06/12/17 04:45 Est GFR (MDRD) Non-Af 51 (>60) L 06/12/17 04:45 Glucose 83 mg/dL (65-99) 06/12/17 04:45 Calcium 8.7 mg/dL (8.5-10.1) 06/12/17 04:45 Corrected Calcium 9.5 mg/dL (8.5-10.1) 06/12/17 04:45 Magnesium 2.5 mg/dL (1.7-2.9) 06/08/17 23:40 Total Bilirubin 0.40 mg/dL (0.2-1.0) 06/12/17 04:45 AST 22 Units/L (15-37) 06/12/17 04:45 ALT 17 Units/L (12-78) 06/12/17 04:45 Alkaline Phosphatase 93 Units/L (46-116) 06/12/17 04:45 Total Protein 7.4 g/dL (6.4-8.2) 06/12/17 04:45 Albumin 3.0 g/dL (3.4-5.0) L 06/12/17 04:45 Globulin 4.4 g/dL (2.5-4.5) 06/12/17 04:45 Albumin/Globulin Ratio 0.7 Ratio (1.1-2.1) L 06/12/17 04:45 Specimen Type Clean catch urine 06/09/17 01:14 Urine Color Yellow (YELLOW) 06/09/17 01:14 Urine Appearance Cloudy (CLEAR) 06/09/17 01:14 Urine pH 5.0 (5.0 - 8.0) 06/09/17 01:14 Ur Specific [place] 1.015 (1.000-1.030) 06/09/17 01:14 Urine Protein 2+ (NEGATIVE) 06/09/17 01:14 Urine Glucose (UA) Negative (NEGATIVE) 06/09/17 01:14 Urine Ketones Negative (NEGATIVE) 06/09/17 01:14 Urine Occult Blood 3+ (NEGATIVE) 06/09/17 01:14 Urine Nitrite Positive (NEGATIVE) 06/09/17 01:14 Urine Bilirubin Negative (NEGATIVE) 06/09/17 01:14 Urine Urobilinogen Normal (NORMAL) 06/09/17 01:14 Ur Leukocyte Esterase 3+ (NEGATIVE) 06/09/17 01:14 Urine RBC 10-15 /HPF (NEGATIVE) 06/09/17 01:14 Urine WBC 80-100 /HPF (NEGATIVE) 06/09/17 01:14 Ur Squamous Epith Cells Few /HPF (NEGATIVE) 06/09/17 01:14 Urine Bacteria 3+ /HPF (NEGATIVE) 06/09/17 01:14 Ur Culture Indicated? Yes/culture set up 06/09/17 01:14 Stool Description 50g unformed green 06/11/17 11:40 Stool for White Cells No wbc's seen (None) 06/11/17 11:40 Stl C. diff Tox B Gene Positive (NEGATIVE) A 06/11/17 11:40 Stl C. diff [id number] Negative (NEGATIVE) 06/11/17 11:40 Digoxin 1.34 ng/mL (0.9-2) 06/09/17 11:49 Cryptosporid parvum Ag Negative (NEGATIVE) 06/11/17 11:40 E. histolytica Antigen Negative (NEGATIVE) 06/11/17 11:40 Giardia lamblia Ag Negative (NEGATIVE) 06/11/17 11:40 Hospital Course: Mrs. Izquierdo is a 77-year-old white female who is a resident of [facility] under the care of hospice prior to admission. The family revoked hospice care to have patient admitted for altered mental status and UTI. Patient was treated prior to admission with oral antibiotics without improvement of UTI and continued confusion. Patient was noted on admission to have decreased mental status however after 24 hours of hydration and IV antibiotics patient was much more awake and alert. Patient had localized lower abdominal pain and had a abdominal series which was stable. Patient continued to complain of tenderness to her lower abdomen so a CT was performed to rule out pyelonephritis. Patient's urine culture at this time showed contamination without any specific bacterial cause of UTI. Patient had a CT scan of her abdomen and pelvis which revealed severe constipation. Patient was treated with by mouth medication to stimulate bowels as well as Dulcolax suppository. Nursing staff reported multiple bowel movements last one being soft. Patient was definitely a lot more awake and alert on discharge patient's labs were stable she was discharged back to the [facility] to resume her current plan of therapy. Patient encouraged to increase by mouth water intake. Patient's condition on discharge was stable and improved condition. She is to have a routine follow-up visit with Dr. Manzo - Discharge Plan Disposition: 03 XF SNF Condition: Stable Prescriptions: Nitrofurantoin Macro [Macrobid Cap 100 mg Ext Rel] 100 mg PO BID #20 cap - Follow ups/Referrals Follow ups/Referrals: [facility] [Other] CARL MANZO [Primary Care Provider] - - Instructions Additional Instructions: resume home meds microbid 100mg po bid x 10 days
== END 2017-06-12 16:25 | DRG 690 ==
LOC: MED/SURG 21:46
PROVIDERS: ADMIT Internal Medicine; ATTEND Internal Medicine
DX: N39.0 Urinary tract infection, site not specified (principal); R41.82 Altered mental status, unspecified; R50.9 Fever, unspecified; M13.89 Other specified arthritis, multiple sites; I25.10 Atherosclerotic heart disease of native coronary artery without angina pectoris; K21.9 Gastro-esophageal reflux disease without esophagitis; I10 Essential (primary) hypertension; J44.9 Chronic obstructive pulmonary disease, unspecified; R10.84 Generalized abdominal pain; K59.09 Other constipation; R94.4 Abnormal results of kidney function studies; A04.7 Enterocolitis due to Clostridium difficile; R11.0 Nausea
CPT/HCPCS: 36415; 71010; 74000; 74022; 74176; 80053; 80162; 81001; 83735; 85025; 87040; 87045; 87086; 87205; 87328; 87329; 87336; 87427; 87493; 87899; 93005; 93010; 94760; A4222; S0028; S0181; J0696; J2270; J3260

== ENCOUNTER 2017-09-14 22:12 | Inpatient (IN) | payer OTHER, MEDICAID ==
[2017-09-14] MEDS ORDERED: PROVENTIL NEB TX 0.083% 2.5MG/ 3ML NEB PRN (22:23)
[2017-09-14 22:54] LABS: BASOPHILS # (AUTO) 0.1 X10^3/uL (0.0-0.1); EOSINOPHILS # (AUTO) 0.3 x10^3/uL (0.0-0.2); EOSINOPHILS % (AUTO) 4.3 % (0.9-2.9); HEMATOCRIT 26.6 % (36.0-47.0); HEMOGLOBIN 8.5 g/dL (12.0-16.0); LYMPHOCYTES # (AUTO) 1.1 X10^3/uL (1.3-2.9); LYMPHOCYTES % (AUTO) 17.9 % (21.0-51.0); MEAN CORPUSCULAR HEMOGLOBIN 24.7 pg (27.0-34.0); MEAN CORPUSCULAR HGB CONC 32.1 g/dL (33.0-35.0); MEAN PLATELET VOLUME 7.7 fL (7.4-11.0); MONOCYTES # (AUTO) 0.4 x10^3/uL (0.3-0.8); MONOCYTES % (AUTO) 5.6 % (0.0-13.0); NEUTROPHILS # (AUTO) 4.4 x10^3/uL (2.2-4.8); NEUTROPHILS % (AUTO) 71.2 % (42.0-75.0); PLATELET COUNT 189 X10^3/uL (150.0-450.0); RED BLOOD COUNT 3.45 X10^6/uL (3.5-5.4); RED CELL DISTRIBUTION WIDTH 18.2 % (11.6-16.5); WHITE BLOOD COUNT 6.2 X10^3/uL (3.6-10.0)
[2017-09-14] MEDS: PULMICORT NEB TX 0.5 MG NEB SCH (22:55)
[2017-09-14] MEDS: DUONEB 0.5 MG/3 MG NEB SCH (22:55)
[2017-09-14] MEDS: BROVANA IN SCH (22:55)
[2017-09-14 22:58] LABS: ABG ALLEN TEST POS
[2017-09-14 23:04] LABS: ALANINE AMINOTRANSFERASE 22 Units/L (12-78); ALBUMIN 2.2 g/dL (3.4-5.0); ALKALINE PHOSPHATASE 82 Units/L (46-116); ASPARTATE AMINO TRANSFERASE 17 Units/L (15-37); BLOOD UREA NITROGEN 11 mg/dL (7-18); CALCIUM 8.3 mg/dL (8.5-10.1); CARBON DIOXIDE 29.2 mmol/L (21-32); CHLORIDE 104 mmol/L (98-107); COR CA(FOR HYPOALB) 9.7 mg/dL (8.5-10.1); CREATININE 1.16 mg/dL (0.55-1.02); SODIUM 138 mmol/L (136-145); TOTAL PROTEIN 6.1 g/dL (6.4-8.2); eGFR BLACK RACES 58 (>60); eGFR NON BLACK RACES 48 (>60)
[2017-09-14] MEDS: NS 1000 ML 1,000 ML IV SCH (23:11)
[2017-09-14] MEDS: ROCEPHIN VIAL 1 GM 1 GM in NS 50 ML IV + SPIKE MINIBAG* 50 ML IV SCH (23:11)
[2017-09-14 23:12] LABS: ANISOCYTOSIS SLIGHT; HYPOCHROMASIA SLIGHT; MICROCYTOSIS SLIGHT; PLATELET MORPHOLOGY COMMENT NORMAL (NORMAL); POIKILOCYTOSIS SLIGHT
[2017-09-14] MEDS: SOLU-Medrol 40 MG VIAL IVP SCH (23:12)
[2017-09-14] MEDS: ZITHROMAX INJ 500 MG VIAL 500 MG in NS 250 ML IV 250 ML IV SCH (23:45)
[2017-09-15] MEDS: DUONEB 0.5 MG/3 MG NEB SCH ×5 (00:12→16:08)
[2017-09-15] MEDS ORDERED: SALINE 3% 15 ML NEB TX NEB ONE (01:45)
[2017-09-15] MEDS: NORCO 7.5/325 MG TAB PO PRN ×3 (02:38→21:02)
[2017-09-15] MEDS: SOLU-Medrol 40 MG VIAL IVP SCH ×3 (05:33→21:03)
--- NOTE | 2017-09-15 06:06 | RAD ---
HISTORY: Follow-up pneumonia Study: Chest AP portable Comparison: 06/10/2017 Findings: There is a pacemaker present on the right obscuring a portion of the right mid lung. The heart is enl arged. The aorta is ectatic. The ne are normal. No definite congestive heart failure is identified. No definite acute alveolar infiltrates are noted. There is some perihilar subsegmental atelectasis o n the left. The bony thorax is unremarkable. IMPRESSION: Cardiomegaly without congestive heart failure Perihilar subsegmental atelectasis on the left Reported By:
[2017-09-15] MEDS: ZITHROMAX INJ 500 MG VIAL 500 MG in NS 250 ML IV 250 ML IV SCH (08:27)
[2017-09-15] MEDS: ROCEPHIN VIAL 1 GM 1 GM in NS 50 ML IV + SPIKE MINIBAG* 50 ML IV SCH (08:27)
[2017-09-15] MEDS: BROVANA IN SCH ×2 (10:27→20:53)
[2017-09-15] MEDS: PULMICORT NEB TX 0.5 MG NEB SCH ×2 (10:27→20:53)
[2017-09-15] MEDS ORDERED: BUTT CREAM (COMPOUND) TOP PRN (12:17)
--- NOTE | 2017-09-15 13:17 | DR.H&P ---
H&P - History & Physical for Day of: H&P Date: 09/15/17 - Chief Complaint Chief Complaint: sob - Allergies Allergies/Adverse Reactions: Allergies Allergy/AdvReac Type Severity Reaction Status Date / Time tramadol AdvReac Verified 06/08/17 22:43 - History of Present Illness History of Present Illness: patient is a 77-year-old white female who was a direct admit from [facility] after failing to improve with treatment of pneumonia for shortness of breath and chest congestion. Plan to admit patient for IV antibiotics respiratory therapy IV steroids. And resume home medications. We will repeat a.m. labs - Past Medical History Past Medical History: Anemia, Arthritis, CHF, Coronary Artery Disease, Dementia , GERD, Hypertension, Renal Disease - Past Surgical History Surgical History: Appendectomy, Cholecystectomy, Hysterectomy, Joint Replacement , Ortho Surgery, Tonsillectomy, Other - Family History Family Medical History: Diabetes Mellitus, [place], Heart Failure, Sudden Cardiac , Hypertension - Social History Does patient currently use any type of tobacco product: No Have you used tobacco products in the last 12 months: No Type of Tobacco Use: None Does any household member use tobacco: No Alcohol Use: None Drug Use: None - Review of Systems Constitutional: No Symptoms Reported Eyes: No Symptoms Reported ENT: No Symptoms Reported Respiratory: Shortness of Breath Cardiovascular: No Symptoms Reported Gastrointestinal: No Symptoms Reported Genitourinary: No Symptoms Reported Musculoskeletal: Back Pain, Leg Pain Skin: No Symptoms Reported Neurological: Weakness - Physical Exam Vital Signs: Temperature 98.5 F Pulse Rate [Left] 70 Pulse Rate 92 Respiratory Rate 18 Blood Pressure [Left Calf] 95/53 Blood Pressure [Left Arm] 130/61 Blood Pressure [Right Arm] 163/76 Blood Pressure 163/76 O2 Sat by Pulse Oximetry 95 Oriented: Normal Eyes: Normal Ear: Normal Nose: Normal Throat: Normal Respiratory: RLL Diminished, LLL Diminished Cardiovascular: negative: Edema Auscultation: Bowel Sounds: Normal Palpation: Normal Tenderness: Normal Skin: Normal Musculoskeletal: Motor Deficit Psychiatric: Anxiety Speech Pattern: Clear, Appropriate - Assessment/Plan (1) Pneumonia Status: Acute Plan: Plan to admit patient for IV antibiotics respiratory therapy IV steroids. And resume home medications. We will repeat a.m. labs (2) SOB (shortness of breath) Status: Acute (3) COPD (chronic obstructive pulmonary disease) Status: Chronic (4) Coronary artery disease Status: Chronic (5) Essential hypertension, benign Status: Chronic (6) GERD (gastroesophageal reflux disease) Status: Chronic
[2017-09-15] MEDS ORDERED: NORCO 7.5/325 MG TAB PO PRN (13:18)
[2017-09-15] MEDS: NEURONTIN TAB 600 MG PO SCH ×2 (14:12→21:03)
[2017-09-15] MEDS: XARELTO PO SCH (14:12)
[2017-09-15 14:13] LABS: CKMB % 2.9 % (<4); CREATINE KINASE 35 Units/L (26-192); CREATINE KINASE MB < 1.0 ng/mL (0-4.0); TROPONIN I 0.03 ng/mL (0-1.5)
[2017-09-15 14:48] LABS: IRON 9 ug/dL (50-175); TRANSFERRIN 203 mg/dL (202-364)
[2017-09-15] MEDS: NYSTATIN SUSP MT SCH ×2 (16:45→22:40)
[2017-09-15 17:08] LABS: BILIRUBIN,URINE NEGATIVE (NEGATIVE); BLOOD/HEMOGLOBIN,URINE NEGATIVE (NEGATIVE); GLUCOSE, URINE NEGATIVE (NEGATIVE); KETONES,URINE NEGATIVE (NEGATIVE); LEUKOCYTE ESTERASE ,URINE NEGATIVE (NEGATIVE); NITRITES,URINE NEGATIVE (NEGATIVE); PROTEIN,URINE 1+ (NEGATIVE); UROBILINOGEN,URINE NORMAL (NORMAL)
[2017-09-15 17:17] LABS: AMORPHOUS SEDIMENT,UR TRACE /HPF (NEGATIVE); APPEARANCE,URINE CLEAR (CLEAR); BACTERIA,URINE TRACE /HPF (NEGATIVE); COLOR,URINE YELLOW (YELLOW); SQUAMOUS EPITHELIAL CELL,UR NEGATIVE /HPF (NEGATIVE)
[2017-09-15] MEDS: MAALOX or MYLANTA PO PRN (21:02)
[2017-09-15] MEDS: DESYREL PO SCH (21:03)
[2017-09-16] MEDS: DUONEB 0.5 MG/3 MG NEB SCH ×4 (01:03→16:04)
[2017-09-16 05:09] VITALS: BMI 26.6
[2017-09-16] MEDS: NEURONTIN TAB 600 MG PO SCH ×3 (05:56→21:59)
[2017-09-16] MEDS: SOLU-Medrol 40 MG VIAL IVP SCH ×3 (05:56→21:59)
[2017-09-16 06:17] LABS: BASOPHILS % (AUTO) 0.6 % (0.2-1.0); EOSINOPHILS % (AUTO) 0.2 % (0.9-2.9); HEMATOCRIT 26.2 % (36.0-47.0); HEMOGLOBIN 8.5 g/dL (12.0-16.0); LYMPHOCYTES # (AUTO) 0.5 X10^3/uL (1.3-2.9); MEAN CORPUSCULAR HGB CONC 32.6 g/dL (33.0-35.0); MEAN CORPUSCULAR VOLUME 76.6 fL (80.0-100.0); MEAN PLATELET VOLUME 8.1 fL (7.4-11.0); MONOCYTES # (AUTO) 0.1 x10^3/uL (0.3-0.8); MONOCYTES % (AUTO) 2.1 % (0.0-13.0); NEUTROPHILS # (AUTO) 2.8 x10^3/uL (2.2-4.8); NEUTROPHILS % (AUTO) 82.1 % (42.0-75.0); PLATELET COUNT 226 X10^3/uL (150.0-450.0); RED BLOOD COUNT 3.41 X10^6/uL (3.5-5.4); RED CELL DISTRIBUTION WIDTH 17.8 % (11.6-16.5); WHITE BLOOD COUNT 3.3 X10^3/uL (3.6-10.0)
[2017-09-16 06:21] LABS: ALANINE AMINOTRANSFERASE 19 Units/L (12-78); ALBUMIN 2.3 g/dL (3.4-5.0); ALKALINE PHOSPHATASE 75 Units/L (46-116); ASPARTATE AMINO TRANSFERASE 22 Units/L (15-37); BLOOD UREA NITROGEN 12 mg/dL (7-18); CALCIUM 8.2 mg/dL (8.5-10.1); CARBON DIOXIDE 26.9 mmol/L (21-32); CHLORIDE 104 mmol/L (98-107); COR CA(FOR HYPOALB) 9.6 mg/dL (8.5-10.1); COR NA(FOR HYPERGLY) 138 mmol/L (136-145); CREATININE 1.08 mg/dL (0.55-1.02); SODIUM 137 mmol/L (136-145); TOTAL PROTEIN 6.3 g/dL (6.4-8.2); eGFR BLACK RACES > 60 (>60); eGFR NON BLACK RACES 52 (>60)
[2017-09-16 06:50] LABS: PLATELET MORPHOLOGY COMMENT NORMAL (NORMAL)
[2017-09-16] MEDS ORDERED: PATIENT'S HOME MEDICATION (Rivaroxaban [Xarelto] 20 MG) PO SCH (09:00)
[2017-09-16] MEDS: BROVANA IN SCH ×2 (09:03→21:12)
[2017-09-16] MEDS: PULMICORT NEB TX 0.5 MG NEB SCH ×2 (09:03→21:12)
[2017-09-16] MEDS: XARELTO PO SCH (09:26)
[2017-09-16] MEDS: COLACE CAP 100 MG PO SCH (09:27)
[2017-09-16] MEDS: PriLOSEC PO SCH (09:27)
[2017-09-16] MEDS: NYSTATIN SUSP MT SCH ×4 (09:27→22:03)
[2017-09-16] MEDS: LOPRESSOR TAB 25 MG PO SCH (09:27)
[2017-09-16] MEDS: CORDARONE TAB 200 MG PO SCH (09:30)
[2017-09-16] MEDS: ZITHROMAX INJ 500 MG VIAL 500 MG in NS 250 ML IV 250 ML IV SCH (09:30)
[2017-09-16] MEDS: LANOXIN PO SCH (09:31)
[2017-09-16] MEDS ORDERED: ROCEPHIN VIAL 1 GM ONE (09:38)
[2017-09-16] MEDS ORDERED: NS 50 ML IV 50 ML IV ONE (09:38)
[2017-09-16] MEDS: NORCO 7.5/325 MG TAB PO PRN ×3 (09:40→21:57)
[2017-09-16] MEDS ORDERED: NS 100 ML IV 100 ML IV ONE (11:10)
[2017-09-16] MEDS: ROCEPHIN VIAL 1 GM 1 GM in NS 50 ML IV + SPIKE MINIBAG* 50 ML IV SCH (11:42)
[2017-09-16] MEDS: NS 1000 ML 1,000 ML IV SCH (13:48)
--- NOTE | 2017-09-16 16:51 | CT ---
HISTORY: Shortness of breath, elevated D-dimer Study: CTA chest PE protocol Comparison: Radiograph 09/14/2017, abdomen CT 06/10/2017 Technique: Multiple axial images of the chest were obtained after the administration of IV contrast. 3D reconstructions were performed utilizing radial maximum intensity projection imaging. Dose reduct ion techniques including Automated Exposure Control (AEC) and adjustment of mA and kV were utilized. Findings: The exam is limited by motion and streak artifact. Opacification of the pulmonary arteries is adequat e to the level of the segmental branches no definite pulmonary emboli are identified. There is abunda nt streak artifact emanating from the patient's right chest wall pacemaker limiting evaluation of rig ht perihilar vessels. Cardiomegaly is noted. No pericardial effusion. The aorta is tortuous but neelam l in caliber. No dissection. There are small bilateral pleural effusions, or osteoarthrosis in the lo wer lungs 5 5 suggest interstitial edema with additional scattered ground-glass opacities. No pneumot horax identified. Airways are patent. The soft tissues and osseous structures appear intact. The liver has a cirrhotic appearance with construction worker ry prominence of the biliary tree. IMPRESSION: 1. Cardiomegaly with interstitial pulmonary edema and small bilateral pleural effusions. 2. Bibasilar atelectasis. 3. No acute pulmonary emboli. Reported By:
[2017-09-16] MEDS: ATIVAN TAB 0.5 MG PO PRN (21:58)
[2017-09-16] MEDS: DESYREL PO SCH (21:58)
[2017-09-17] MEDS: DUONEB 0.5 MG/3 MG NEB SCH ×5 (00:49→16:59)
[2017-09-17] MEDS: NEURONTIN TAB 600 MG PO SCH ×3 (06:05→21:03)
[2017-09-17] MEDS: SOLU-Medrol 40 MG VIAL IVP SCH ×3 (06:08→21:03)
[2017-09-17 06:22] LABS: BASOPHILS % (AUTO) 0.1 % (0.2-1.0); HEMATOCRIT 29.9 % (36.0-47.0); HEMOGLOBIN 9.6 g/dL (12.0-16.0); LYMPHOCYTES # (AUTO) 0.4 X10^3/uL (1.3-2.9); LYMPHOCYTES % (AUTO) 10.5 % (21.0-51.0); MEAN CORPUSCULAR HEMOGLOBIN 24.7 pg (27.0-34.0); MEAN CORPUSCULAR HGB CONC 31.9 g/dL (33.0-35.0); MEAN CORPUSCULAR VOLUME 77.3 fL (80.0-100.0); MEAN PLATELET VOLUME 8.3 fL (7.4-11.0); MONOCYTES # (AUTO) 0.1 x10^3/uL (0.3-0.8); MONOCYTES % (AUTO) 1.8 % (0.0-13.0); NEUTROPHILS # (AUTO) 3.2 x10^3/uL (2.2-4.8); NEUTROPHILS % (AUTO) 87.6 % (42.0-75.0); PLATELET COUNT 236 X10^3/uL (150.0-450.0); RED BLOOD COUNT 3.87 X10^6/uL (3.5-5.4); RED CELL DISTRIBUTION WIDTH 18.5 % (11.6-16.5); WHITE BLOOD COUNT 3.6 X10^3/uL (3.6-10.0)
[2017-09-17 06:55] LABS: ALBUMIN 2.4 g/dL (3.4-5.0); CALCIUM 8.3 mg/dL (8.5-10.1); CARBON DIOXIDE 24.8 mmol/L (21-32); COR CA(FOR HYPOALB) 9.6 mg/dL (8.5-10.1); CREATININE 1.15 mg/dL (0.55-1.02); TOTAL PROTEIN 6.4 g/dL (6.4-8.2)
[2017-09-17 07:30] LABS: HYPOCHROMASIA SLIGHT; PLATELET MORPHOLOGY COMMENT NORMAL (NORMAL)
[2017-09-17 07:31] LABS: ANISOCYTOSIS SLIGHT
[2017-09-17] MEDS ORDERED: ROCEPHIN VIAL 1 GM 1 GM in NS 50 ML IV 50 ML IV SCH (09:00)
[2017-09-17] MEDS: BROVANA IN SCH ×2 (09:03→20:29)
[2017-09-17] MEDS: PULMICORT NEB TX 0.5 MG NEB SCH ×2 (09:03→20:29)
[2017-09-17] MEDS: NYSTATIN SUSP MT SCH ×4 (09:35→20:54)
[2017-09-17] MEDS: COLACE CAP 100 MG PO SCH (09:36)
[2017-09-17] MEDS: PriLOSEC PO SCH (09:37)
[2017-09-17] MEDS: LOPRESSOR TAB 25 MG PO SCH (09:37)
[2017-09-17] MEDS: LANOXIN PO SCH (09:37)
[2017-09-17] MEDS: XARELTO PO SCH (09:38)
[2017-09-17] MEDS: CORDARONE TAB 200 MG PO SCH (09:38)
[2017-09-17] MEDS: NORCO 7.5/325 MG TAB PO PRN ×2 (09:47→20:55)
[2017-09-17] MEDS: ATIVAN TAB 0.5 MG PO PRN (09:47)
[2017-09-17] MEDS: ZITHROMAX INJ 500 MG VIAL 500 MG in NS 250 ML IV 250 ML IV SCH (09:48)
[2017-09-17] MEDS: LASIX IVP SCH ×2 (09:48→20:54)
[2017-09-17] MEDS: DESYREL PO SCH (20:55)
[2017-09-17] MEDS: MAALOX or MYLANTA PO PRN (21:04)
[2017-09-17] MEDS: NS 1000 ML 1,000 ML IV SCH (23:51)
[2017-09-18] MEDS: DUONEB 0.5 MG/3 MG NEB SCH ×4 (00:50→17:14)
[2017-09-18] MEDS: NS 1000 ML 1,000 ML IV SCH (02:32)
[2017-09-18] MEDS: NORCO 7.5/325 MG TAB PO PRN ×5 (02:32→21:07)
[2017-09-18] MEDS: NEURONTIN TAB 600 MG PO SCH ×3 (05:10→21:04)
[2017-09-18] MEDS: MAALOX or MYLANTA PO PRN ×2 (05:10→19:20)
[2017-09-18 06:16] LABS: BASOPHILS % (AUTO) 0.1 % (0.2-1.0); HEMATOCRIT 26.3 % (36.0-47.0); HEMOGLOBIN 8.6 g/dL (12.0-16.0); LYMPHOCYTES # (AUTO) 0.4 X10^3/uL (1.3-2.9); LYMPHOCYTES % (AUTO) 10.2 % (21.0-51.0); MEAN CORPUSCULAR HEMOGLOBIN 25.1 pg (27.0-34.0); MEAN CORPUSCULAR HGB CONC 32.9 g/dL (33.0-35.0); MEAN CORPUSCULAR VOLUME 76.3 fL (80.0-100.0); MONOCYTES # (AUTO) 0.1 x10^3/uL (0.3-0.8); MONOCYTES % (AUTO) 2.3 % (0.0-13.0); NEUTROPHILS # (AUTO) 3.3 x10^3/uL (2.2-4.8); NEUTROPHILS % (AUTO) 87.4 % (42.0-75.0); PLATELET COUNT 254 X10^3/uL (150.0-450.0); RED BLOOD COUNT 3.44 X10^6/uL (3.5-5.4); RED CELL DISTRIBUTION WIDTH 18.5 % (11.6-16.5); WHITE BLOOD COUNT 3.7 X10^3/uL (3.6-10.0)
[2017-09-18 06:46] LABS: ALBUMIN 2.3 g/dL (3.4-5.0); CALCIUM 7.9 mg/dL (8.5-10.1); CARBON DIOXIDE 28.3 mmol/L (21-32); COR CA(FOR HYPOALB) 9.3 mg/dL (8.5-10.1); CREATININE 1.23 mg/dL (0.55-1.02)
[2017-09-18 07:16] LABS: ANISOCYTOSIS SLIGHT; PLATELET MORPHOLOGY COMMENT NORMAL (NORMAL)
[2017-09-18] MEDS ORDERED: MILK OF MAGNESIA PO PRN (07:29)
[2017-09-18] MEDS: PULMICORT NEB TX 0.5 MG NEB SCH ×2 (08:44→20:01)
[2017-09-18] MEDS: BROVANA IN SCH ×2 (08:46→20:02)
[2017-09-18] MEDS: ROCEPHIN 1 GM IV PREMIX 1 GM/50 ML IV.SOLN. IV SCH (09:48)
[2017-09-18] MEDS: ATIVAN TAB 0.5 MG PO PRN ×3 (09:49→21:04)
[2017-09-18] MEDS: NYSTATIN SUSP MT SCH ×4 (09:49→21:04)
[2017-09-18] MEDS: LANOXIN PO SCH (09:49)
[2017-09-18] MEDS: LOPRESSOR TAB 25 MG PO SCH (09:49)
[2017-09-18] MEDS: ZITHROMAX INJ 500 MG VIAL 500 MG in NS 250 ML IV 250 ML IV SCH (09:49)
[2017-09-18] MEDS: COLACE CAP 100 MG PO SCH (09:52)
[2017-09-18] MEDS: PriLOSEC PO SCH (09:52)
[2017-09-18] MEDS: CORDARONE TAB 200 MG PO SCH (09:53)
[2017-09-18] MEDS: XARELTO PO SCH (10:01)
--- NOTE | 2017-09-18 17:08 | RAD ---
HISTORY: Left-sided abdominal pain Study: Portable view of the abdomen Comparison: 06/12/2017 Findings: Single supine portable view is submitted, limited by small field of view. There is nonspecific gaseou s distention of bowel loops. There is a partially visualized right hip arthroplasty. The soft tissues are intact. IMPRESSION: 1. Limited portable exam showing nonspecific gaseous distention of bowel loops. Reported By:
[2017-09-18] MEDS: DESYREL PO SCH (21:04)
[2017-09-19] MEDS: DUONEB 0.5 MG/3 MG NEB SCH ×4 (00:40→17:18)
[2017-09-19] MEDS: NEURONTIN TAB 600 MG PO SCH ×2 (05:51→14:38)
[2017-09-19] MEDS: NS 1000 ML 1,000 ML IV SCH (05:51)
[2017-09-19 06:19] LABS: BASOPHILS % (AUTO) 0.2 % (0.2-1.0); EOSINOPHILS % (AUTO) 0.1 % (0.9-2.9); HEMOGLOBIN 8.8 g/dL (12.0-16.0); LYMPHOCYTES # (AUTO) 1.3 X10^3/uL (1.3-2.9); LYMPHOCYTES % (AUTO) 18.7 % (21.0-51.0); MEAN CORPUSCULAR HEMOGLOBIN 24.4 pg (27.0-34.0); MEAN CORPUSCULAR HGB CONC 31.4 g/dL (33.0-35.0); MEAN CORPUSCULAR VOLUME 77.9 fL (80.0-100.0); MONOCYTES # (AUTO) 0.4 x10^3/uL (0.3-0.8); MONOCYTES % (AUTO) 5.4 % (0.0-13.0); NEUTROPHILS # (AUTO) 5.2 x10^3/uL (2.2-4.8); NEUTROPHILS % (AUTO) 75.6 % (42.0-75.0); PLATELET COUNT 253 X10^3/uL (150.0-450.0); RED BLOOD COUNT 3.59 X10^6/uL (3.5-5.4); RED CELL DISTRIBUTION WIDTH 18.3 % (11.6-16.5); WHITE BLOOD COUNT 6.8 X10^3/uL (3.6-10.0)
[2017-09-19 06:28] LABS: ALANINE AMINOTRANSFERASE 19 Units/L (12-78); ALBUMIN 2.4 g/dL (3.4-5.0); ALKALINE PHOSPHATASE 65 Units/L (46-116); ASPARTATE AMINO TRANSFERASE 22 Units/L (15-37); BLOOD UREA NITROGEN 24 mg/dL (7-18); CALCIUM 7.8 mg/dL (8.5-10.1); CARBON DIOXIDE 31.4 mmol/L (21-32); CHLORIDE 102 mmol/L (98-107); COR CA(FOR HYPOALB) 9.1 mg/dL (8.5-10.1); CREATININE 1.13 mg/dL (0.55-1.02); SODIUM 138 mmol/L (136-145); TOTAL PROTEIN 5.9 g/dL (6.4-8.2); eGFR BLACK RACES 60 (>60); eGFR NON BLACK RACES 49 (>60)
[2017-09-19 07:19] LABS: ANISOCYTOSIS SLIGHT; HYPOCHROMASIA SLIGHT; PLATELET MORPHOLOGY COMMENT NORMAL (NORMAL)
[2017-09-19 07:20] LABS: OVALOCYTES PRESENT
[2017-09-19] MEDS: CORDARONE TAB 200 MG PO SCH (10:30)
[2017-09-19] MEDS: ROCEPHIN 1 GM IV PREMIX 1 GM/50 ML IV.SOLN. IV SCH (10:30)
[2017-09-19] MEDS: COLACE CAP 100 MG PO SCH (10:30)
[2017-09-19] MEDS: NYSTATIN SUSP MT SCH ×5 (10:30→20:07)
[2017-09-19] MEDS: LANOXIN PO SCH (10:30)
[2017-09-19] MEDS: ZITHROMAX INJ 500 MG VIAL 500 MG in NS 250 ML IV 250 ML IV SCH (10:30)
[2017-09-19] MEDS: XARELTO PO SCH (10:31)
[2017-09-19] MEDS: PriLOSEC PO SCH (10:32)
[2017-09-19] MEDS: LOPRESSOR TAB 25 MG PO SCH (10:32)
[2017-09-19] MEDS: NORCO 7.5/325 MG TAB PO PRN ×2 (10:38→18:53)
[2017-09-19] MEDS: MAALOX or MYLANTA PO PRN ×2 (12:54→19:32)
[2017-09-19 14:29] LABS: ABG BASE EXCESS 3.3 mmol/L (-2.0-2.0); ABG HCO3 29.1 mmol/L (22-26)
[2017-09-19 14:30] LABS: ABG ALLEN TEST POS
[2017-09-19] MEDS: BROVANA IN SCH (17:35)
[2017-09-19] MEDS: PULMICORT NEB TX 0.5 MG NEB SCH (17:35)
[2017-09-19] MEDS ORDERED: DIFLUCAN PO ONE (18:46)
[2017-09-19] MEDS: ATIVAN TAB 0.5 MG PO PRN (18:53)
[2017-09-19] MEDS: DESYREL PO SCH (20:24)
[2017-09-19 21:35] VITALS: BP 111/59
== END 2017-09-19 20:50 | DRG 204 ==
LOC: OBS 22:12 → MED/SURG 09-15 15:00
PROVIDERS: ADMIT Internal Medicine; ATTEND Internal Medicine
DX: R06.03 Acute respiratory distress (principal); J44.1 Chronic obstructive pulmonary disease with (acute) exacerbation; J18.8 Other pneumonia, unspecified organism; J20.8 Acute bronchitis due to other specified organisms; R06.02 Shortness of breath; I25.10 Atherosclerotic heart disease of native coronary artery without angina pectoris; K21.9 Gastro-esophageal reflux disease without esophagitis; I10 Essential (primary) hypertension; I48.91 Unspecified atrial fibrillation; R26.89 Other abnormalities of gait and mobility; R13.11 Dysphagia, oral phase
CPT/HCPCS: 36415; 36600; 71010; 71275; 74000; 80053; 80162; 81001; 82550; 82553; 82607; 82728; 82746; 82803; 83540; 84466; 84484; 85025; 85378; 87086; 93005; 93010; 94640; 94760; 99238; A4222; J0456; J0696; J1940; J2920; J7620; J7626

== ENCOUNTER 2017-09-23 15:02 | Inpatient (IN) | payer OTHER, MEDICAID ==
[2017-09-23] MEDS ORDERED: SOLU-Medrol 125 MG VIAL IVP ONE (15:53)
[2017-09-23] MEDS ORDERED: SALINE 3% 15 ML NEB TX ONE (15:54)
[2017-09-23] MEDS ORDERED: LASIX IVP SCH (16:00)
[2017-09-23] MEDS ORDERED: SALINE 3% 15 ML NEB TX NEB ONE (16:00)
[2017-09-23 16:11] LABS: ABG BASE EXCESS 4.1 mmol/L (-2.0-2.0)
[2017-09-23 16:12] LABS: ABG HCO3 31.3 mmol/L (22-26)
[2017-09-23 16:13] LABS: ABG ALLEN TEST POS
[2017-09-23] MEDS ORDERED: NS 500 ML IV 500 ML IV ONE (16:27)
[2017-09-23 16:38] LABS: BILIRUBIN,URINE NEGATIVE (NEGATIVE); BLOOD/HEMOGLOBIN,URINE 3+ (NEGATIVE); GLUCOSE, URINE NEGATIVE (NEGATIVE); KETONES,URINE NEGATIVE (NEGATIVE); LEUKOCYTE ESTERASE ,URINE 3+ (NEGATIVE); NITRITES,URINE NEGATIVE (NEGATIVE); PROTEIN,URINE 2+ (NEGATIVE); UROBILINOGEN,URINE NORMAL (NORMAL)
[2017-09-23 16:39] LABS: BASOPHILS % (AUTO) 0.4 % (0.2-1.0); EOSINOPHILS % (AUTO) 0.1 % (0.9-2.9); HEMATOCRIT 26.8 % (36.0-47.0); HEMOGLOBIN 8.5 g/dL (12.0-16.0); LYMPHOCYTES % (AUTO) 13.4 % (21.0-51.0); MEAN CORPUSCULAR HEMOGLOBIN 24.7 pg (27.0-34.0); MEAN CORPUSCULAR HGB CONC 31.5 g/dL (33.0-35.0); MEAN CORPUSCULAR VOLUME 78.4 fL (80.0-100.0); MEAN PLATELET VOLUME 8.2 fL (7.4-11.0); MONOCYTES # (AUTO) 0.4 x10^3/uL (0.3-0.8); MONOCYTES % (AUTO) 5.8 % (0.0-13.0); NEUTROPHILS % (AUTO) 80.3 % (42.0-75.0); PLATELET COUNT 246 X10^3/uL (150.0-450.0); RED BLOOD COUNT 3.42 X10^6/uL (3.5-5.4); RED CELL DISTRIBUTION WIDTH 18.1 % (11.6-16.5); WHITE BLOOD COUNT 7.5 X10^3/uL (3.6-10.0)
--- NOTE | 2017-09-23 16:41 | RAD ---
Will Examination: Portable AP chest History: COPD, SOB Comparison reference: 09/14/2017 Findings: Continued cardiac enlargement with stable position of pacing device. Increasing opacity in both lower lungs consistent with infiltrate, edema and/or pleural fluid. The upper lungs are relative ly clear. There is no evidence for pneumothorax. Impression: Stable cardiomegaly with pacemaker device. Increasing vascular congestion and basal densi ties consistent with edema, infiltrates or atelectasis and fluid. Findings suggest CHF and/or pneumon ia. Reported By:
[2017-09-23 16:45] LABS: COLOR,URINE YELLOW (YELLOW)
[2017-09-23 16:46] LABS: APPEARANCE,URINE CLOUDY (CLEAR); BACTERIA,URINE 2+ /HPF (NEGATIVE); SQUAMOUS EPITHELIAL CELL,UR NEGATIVE /HPF (NEGATIVE)
[2017-09-23] MEDS: NS 500 ML IV 500 ML IV SCH (16:46)
[2017-09-23 16:51] LABS: ANISOCYTOSIS SLIGHT; HYPOCHROMASIA SLIGHT; PLATELET MORPHOLOGY COMMENT NORMAL (NORMAL)
[2017-09-23] MEDS: ROCEPHIN VIAL 1 GM 1 GM in NS 50 ML IV 50 ML IV SCH (16:55)
[2017-09-23] MEDS: ZITHROMAX INJ 500 MG VIAL 500 MG in NS 250 ML IV 250 ML IV SCH (16:57)
[2017-09-23] MEDS: Atrovent NEB TX 0.02% NEB SCH (16:59)
[2017-09-23] MEDS: XOPENEX 1.25 MG/3 ML NEBULE NEB SCH (16:59)
[2017-09-23] MEDS ORDERED: SALINE 3% 15 ML NEB TX NEB NR (17:00)
[2017-09-23 17:06] LABS: ALANINE AMINOTRANSFERASE 27 Units/L (12-78); ALKALINE PHOSPHATASE 79 Units/L (46-116); ASPARTATE AMINO TRANSFERASE 42 Units/L (15-37); BLOOD UREA NITROGEN 16 mg/dL (7-18); CALCIUM 7.3 mg/dL (8.5-10.1); CARBON DIOXIDE 29.5 mmol/L (21-32); CHLORIDE 104 mmol/L (98-107); COR CA(FOR HYPOALB) 8.9 mg/dL (8.5-10.1); COR NA(FOR HYPERGLY) 138 mmol/L (136-145); CREATINE KINASE 20 Units/L (26-192); CREATINE KINASE MB < 1.0 ng/mL (0-4.0); CREATININE 1.66 mg/dL (0.55-1.02); SODIUM 137 mmol/L (136-145); TOTAL PROTEIN 5.1 g/dL (6.4-8.2); TROPONIN I 0.15 ng/mL (0-1.5); eGFR BLACK RACES 38 (>60); eGFR NON BLACK RACES 32 (>60)
[2017-09-23 17:07] LABS: B-TYPE NATRIURETIC PEPTIDE 2460 pg/mL (0-79)
[2017-09-23 17:11] LABS: FREE T4 (FREE THYROXINE) 1.05 ng/dL (0.76-1.46); TSH (3RD GENERATION) 1.654 uIU/mL (0.358-3.74)
[2017-09-23 17:37] VITALS: BMI 22.4
[2017-09-23] MEDS: PULMICORT NEB TX 0.5 MG NEB SCH (20:37)
[2017-09-23] MEDS: BROVANA IN SCH (20:37)
[2017-09-23] MEDS: SOLU-Medrol 40 MG VIAL IVP SCH (21:12)
[2017-09-23 23:16] LABS: CKMB % 1.2 % (<4); CREATINE KINASE 83 Units/L (26-192); CREATINE KINASE MB < 1.0 ng/mL (0-4.0); TROPONIN I 0.16 ng/mL (0-1.5)
[2017-09-24] MEDS: Atrovent NEB TX 0.02% NEB SCH ×3 (00:55→11:28)
[2017-09-24] MEDS: XOPENEX 1.25 MG/3 ML NEBULE NEB SCH ×4 (00:55→20:59)
[2017-09-24 05:03] LABS: CKMB % 3.9 % (<4); CREATINE KINASE 26 Units/L (26-192); CREATINE KINASE MB < 1.0 ng/mL (0-4.0); TROPONIN I 0.13 ng/mL (0-1.5)
[2017-09-24 05:24] LABS: BASOPHILS % (AUTO) 0.1 % (0.2-1.0); CALCIUM 7.8 mg/dL (8.5-10.1); CARBON DIOXIDE 31.4 mmol/L (21-32); CREATININE 1.75 mg/dL (0.55-1.02); EOSINOPHILS % (AUTO) 0.1 % (0.9-2.9); HEMATOCRIT 28.4 % (36.0-47.0); LYMPHOCYTES # (AUTO) 0.7 X10^3/uL (1.3-2.9); LYMPHOCYTES % (AUTO) 15.1 % (21.0-51.0); MEAN CORPUSCULAR HEMOGLOBIN 24.5 pg (27.0-34.0); MEAN CORPUSCULAR HGB CONC 31.7 g/dL (33.0-35.0); MEAN CORPUSCULAR VOLUME 77.2 fL (80.0-100.0); MEAN PLATELET VOLUME 8.6 fL (7.4-11.0); MONOCYTES # (AUTO) 0.1 x10^3/uL (0.3-0.8); MONOCYTES % (AUTO) 1.4 % (0.0-13.0); NEUTROPHILS % (AUTO) 83.3 % (42.0-75.0); PLATELET COUNT 219 X10^3/uL (150.0-450.0); RED BLOOD COUNT 3.67 X10^6/uL (3.5-5.4); RED CELL DISTRIBUTION WIDTH 18.2 % (11.6-16.5); WHITE BLOOD COUNT 4.8 X10^3/uL (3.6-10.0)
[2017-09-24] MEDS: SOLU-Medrol 40 MG VIAL IVP SCH ×3 (06:20→21:26)
[2017-09-24 06:44] LABS: HYPOCHROMASIA SLIGHT; PLATELET MORPHOLOGY COMMENT NORMAL (NORMAL)
[2017-09-24] MEDS: ZITHROMAX INJ 500 MG VIAL 500 MG in NS 250 ML IV 250 ML IV SCH (08:47)
[2017-09-24] MEDS: ROCEPHIN VIAL 1 GM 1 GM in NS 50 ML IV 50 ML IV SCH (08:48)
[2017-09-24] MEDS: XOPENEX 1.25 MG/3 ML NEBULE NEB PRN ×2 (09:17→16:27)
[2017-09-24] MEDS: LASIX IVP SCH ×2 (09:53→20:07)
[2017-09-24] MEDS: MORPHINE SULFATE INJ 2 MG INJ IVP PRN ×3 (10:23→21:26)
[2017-09-24] MEDS: BROVANA IN SCH ×2 (11:26→21:00)
[2017-09-24] MEDS: PULMICORT NEB TX 0.5 MG NEB SCH ×2 (11:27→21:00)
[2017-09-24] MEDS ORDERED: ZOFRAN INJ 4 MG VIAL IVP PRN (21:40)
[2017-09-25] MEDS: Atrovent NEB TX 0.02% NEB SCH ×3 (00:52→12:10)
[2017-09-25] MEDS: XOPENEX 1.25 MG/3 ML NEBULE NEB SCH ×3 (00:52→12:10)
[2017-09-25] MEDS: MORPHINE SULFATE INJ 2 MG INJ IVP PRN (02:07)
[2017-09-25] MEDS: SOLU-Medrol 40 MG VIAL IVP SCH ×3 (06:00→21:09)
[2017-09-25 06:06] LABS: ALBUMIN 2.4 g/dL (3.4-5.0); CALCIUM 8.1 mg/dL (8.5-10.1); CARBON DIOXIDE 32.5 mmol/L (21-32); COR CA(FOR HYPOALB) 9.4 mg/dL (8.5-10.1); CREATININE 1.45 mg/dL (0.55-1.02)
[2017-09-25 06:09] LABS: BASOPHILS % (AUTO) 0.2 % (0.2-1.0); HEMATOCRIT 25.7 % (36.0-47.0); HEMOGLOBIN 8.3 g/dL (12.0-16.0); LYMPHOCYTES # (AUTO) 0.5 X10^3/uL (1.3-2.9); LYMPHOCYTES % (AUTO) 15.2 % (21.0-51.0); MEAN CORPUSCULAR HEMOGLOBIN 24.7 pg (27.0-34.0); MEAN CORPUSCULAR HGB CONC 32.4 g/dL (33.0-35.0); MEAN CORPUSCULAR VOLUME 76.3 fL (80.0-100.0); MEAN PLATELET VOLUME 8.4 fL (7.4-11.0); MONOCYTES # (AUTO) 0.1 x10^3/uL (0.3-0.8); MONOCYTES % (AUTO) 3.1 % (0.0-13.0); NEUTROPHILS # (AUTO) 2.6 x10^3/uL (2.2-4.8); NEUTROPHILS % (AUTO) 81.5 % (42.0-75.0); PLATELET COUNT 190 X10^3/uL (150.0-450.0); RED BLOOD COUNT 3.37 X10^6/uL (3.5-5.4); RED CELL DISTRIBUTION WIDTH 18.7 % (11.6-16.5); WHITE BLOOD COUNT 3.2 X10^3/uL (3.6-10.0)
--- NOTE | 2017-09-25 06:16 | RAD ---
History: Shortness of breath Study: Portable AP chest Comparison: September 23 Findings: There is decreasing right and left pleural fluid. There is unchanged cardiomegaly with a to rtuous aorta. There are intact pacer wires from the right subclavian vein. There is mild vascular con gestion slightly improved. Impression: Resolving congestive heart failure Reported By:
[2017-09-25 06:31] LABS: HYPOCHROMASIA SLIGHT; PLATELET MORPHOLOGY COMMENT NORMAL (NORMAL)
[2017-09-25] MEDS ORDERED: MILK OF MAGNESIA PO PRN (08:08)
[2017-09-25] MEDS ORDERED: PROVENTIL NEB TX 0.083% 2.5MG/ 3ML NEB PRN (08:08)
[2017-09-25] MEDS: PULMICORT NEB TX 0.5 MG NEB SCH (08:27)
[2017-09-25] MEDS: BROVANA IN SCH (08:27)
[2017-09-25] MEDS ORDERED: PULMICORT NEB TX 0.5 MG NEB SCH (09:00)
[2017-09-25] MEDS: ROCEPHIN VIAL 1 GM 1 GM in NS 50 ML IV 50 ML IV SCH (09:23)
[2017-09-25] MEDS: LASIX IVP SCH ×2 (09:25→21:09)
[2017-09-25] MEDS: ZITHROMAX INJ 500 MG VIAL 500 MG in NS 250 ML IV 250 ML IV SCH (09:25)
[2017-09-25] MEDS ORDERED: NS 250 ML IV 250 ML IV ONE (09:33)
[2017-09-25] MEDS: NYSTATIN SUSP PO SCH ×4 (11:00→21:05)
[2017-09-25] MEDS: XARELTO PO SCH (11:00)
[2017-09-25] MEDS: COLACE CAP 100 MG PO SCH (11:01)
[2017-09-25] MEDS: PriLOSEC PO SCH (11:01)
[2017-09-25] MEDS: CORDARONE TAB 200 MG PO SCH (11:01)
[2017-09-25] MEDS: ATIVAN TAB 0.5 MG PO PRN ×2 (11:01→22:20)
[2017-09-25] MEDS: LOPRESSOR TAB 25 MG PO SCH (11:01)
[2017-09-25] MEDS: DIFLUCAN PO SCH (11:02)
[2017-09-25] MEDS: LANOXIN PO SCH (11:02)
[2017-09-25] MEDS: NEURONTIN TAB 600 MG PO SCH ×2 (15:58→21:05)
[2017-09-25] MEDS: XOPENEX 1.25 MG/3 ML NEBULE NEB PRN (16:20)
[2017-09-25] MEDS: NS 500 ML IV 500 ML IV SCH (18:44)
[2017-09-25] MEDS: DESYREL PO SCH (21:05)
[2017-09-26] MEDS: PROVENTIL NEB TX 0.083% 2.5MG/ 3ML NEB PRN (00:55)
[2017-09-26] MEDS: XOPENEX 1.25 MG/3 ML NEBULE NEB SCH ×4 (00:55→17:07)
[2017-09-26] MEDS: Atrovent NEB TX 0.02% NEB SCH ×4 (00:56→17:07)
[2017-09-26] MEDS: BROVANA NEB SCH ×3 (05:36→21:31)
[2017-09-26] MEDS: PULMICORT NEB TX 0.5 MG NEB SCH ×3 (05:36→21:31)
[2017-09-26] MEDS: SOLU-Medrol 40 MG VIAL IVP SCH ×2 (05:51→14:20)
[2017-09-26 08:44] LABS: BASOPHILS % (AUTO) 0.1 % (0.2-1.0); HEMATOCRIT 26.4 % (36.0-47.0); HEMOGLOBIN 8.5 g/dL (12.0-16.0); LYMPHOCYTES # (AUTO) 0.3 X10^3/uL (1.3-2.9); LYMPHOCYTES % (AUTO) 10.4 % (21.0-51.0); MEAN CORPUSCULAR HEMOGLOBIN 24.7 pg (27.0-34.0); MEAN CORPUSCULAR HGB CONC 32.2 g/dL (33.0-35.0); MEAN CORPUSCULAR VOLUME 76.8 fL (80.0-100.0); MEAN PLATELET VOLUME 7.8 fL (7.4-11.0); MONOCYTES # (AUTO) 0.1 x10^3/uL (0.3-0.8); MONOCYTES % (AUTO) 2.4 % (0.0-13.0); NEUTROPHILS # (AUTO) 2.4 x10^3/uL (2.2-4.8); NEUTROPHILS % (AUTO) 87.1 % (42.0-75.0); PLATELET COUNT 190 X10^3/uL (150.0-450.0); RED BLOOD COUNT 3.44 X10^6/uL (3.5-5.4); RED CELL DISTRIBUTION WIDTH 18.4 % (11.6-16.5); WHITE BLOOD COUNT 2.7 X10^3/uL (3.6-10.0)
[2017-09-26] MEDS: ROCEPHIN VIAL 1 GM 1 GM in NS 50 ML IV 50 ML IV SCH (08:53)
[2017-09-26] MEDS: LASIX IVP SCH ×2 (08:54→21:48)
[2017-09-26] MEDS: COLACE CAP 100 MG PO SCH (08:54)
[2017-09-26] MEDS: NYSTATIN SUSP PO SCH ×4 (08:54→21:49)
[2017-09-26] MEDS: PriLOSEC PO SCH (08:54)
[2017-09-26] MEDS: XARELTO PO SCH (08:54)
[2017-09-26] MEDS: NEURONTIN TAB 600 MG PO SCH ×2 (08:55→21:49)
[2017-09-26] MEDS: NORCO 7.5/325 MG TAB PO PRN ×2 (08:55→16:27)
[2017-09-26 08:56] LABS: HYPOCHROMASIA SLIGHT; MICROCYTOSIS SLIGHT; PLATELET MORPHOLOGY COMMENT NORMAL (NORMAL)
[2017-09-26] MEDS: DIFLUCAN PO SCH (08:56)
[2017-09-26] MEDS: LOPRESSOR TAB 25 MG PO SCH (08:56)
[2017-09-26] MEDS: ATIVAN TAB 0.5 MG PO PRN ×3 (08:56→21:54)
[2017-09-26 08:57] LABS: ALBUMIN 2.4 g/dL (3.4-5.0); CARBON DIOXIDE 36.2 mmol/L (21-32); COR CA(FOR HYPOALB) 9.3 mg/dL (8.5-10.1); CREATININE 1.13 mg/dL (0.55-1.02); MAGNESIUM 2.3 mg/dL (1.7-2.9); TOTAL PROTEIN 5.7 g/dL (6.4-8.2)
[2017-09-26] MEDS: CORDARONE TAB 200 MG PO SCH (08:58)
[2017-09-26] MEDS: ZITHROMAX INJ 500 MG VIAL 500 MG in NS 250 ML IV 250 ML IV SCH (08:59)
[2017-09-26] MEDS: LANOXIN PO SCH (09:04)
[2017-09-26] MEDS: MAALOX or MYLANTA PO PRN (14:47)
[2017-09-26] MEDS: NS 500 ML IV 500 ML IV SCH ×3 (16:13→22:05)
[2017-09-26] MEDS: DESYREL PO SCH (21:47)
[2017-09-26] MEDS: MORPHINE SULFATE INJ 2 MG INJ IVP PRN (21:54)
[2017-09-27] MEDS ORDERED: BUTT CREAM (COMPOUND) ONE (00:24)
[2017-09-27] MEDS: BUTT CREAM (COMPOUND) TOP PRN (00:34)
[2017-09-27] MEDS: NORCO 7.5/325 MG TAB PO PRN ×3 (00:38→21:27)
[2017-09-27] MEDS: XOPENEX 1.25 MG/3 ML NEBULE NEB SCH ×4 (01:04→17:03)
[2017-09-27] MEDS: Atrovent NEB TX 0.02% NEB SCH ×4 (01:05→17:03)
[2017-09-27 06:08] LABS: BASOPHILS % (AUTO) 0.1 % (0.2-1.0); HEMATOCRIT 26.9 % (36.0-47.0); HEMOGLOBIN 8.7 g/dL (12.0-16.0); LYMPHOCYTES # (AUTO) 0.3 X10^3/uL (1.3-2.9); LYMPHOCYTES % (AUTO) 8.2 % (21.0-51.0); MEAN CORPUSCULAR HEMOGLOBIN 24.6 pg (27.0-34.0); MEAN CORPUSCULAR HGB CONC 32.2 g/dL (33.0-35.0); MEAN CORPUSCULAR VOLUME 76.5 fL (80.0-100.0); MEAN PLATELET VOLUME 8.3 fL (7.4-11.0); MONOCYTES # (AUTO) 0.1 x10^3/uL (0.3-0.8); MONOCYTES % (AUTO) 3.5 % (0.0-13.0); NEUTROPHILS # (AUTO) 3.5 x10^3/uL (2.2-4.8); NEUTROPHILS % (AUTO) 88.2 % (42.0-75.0); PLATELET COUNT 200 X10^3/uL (150.0-450.0); RED BLOOD COUNT 3.52 X10^6/uL (3.5-5.4); RED CELL DISTRIBUTION WIDTH 18.7 % (11.6-16.5)
[2017-09-27 06:42] LABS: ALBUMIN 2.3 g/dL (3.4-5.0); CALCIUM 7.8 mg/dL (8.5-10.1); CARBON DIOXIDE 35.9 mmol/L (21-32); COR CA(FOR HYPOALB) 9.2 mg/dL (8.5-10.1); CREATININE 1.17 mg/dL (0.55-1.02); TOTAL PROTEIN 5.6 g/dL (6.4-8.2)
[2017-09-27 06:44] LABS: HYPOCHROMASIA SLIGHT; MICROCYTOSIS SLIGHT; PLATELET MORPHOLOGY COMMENT NORMAL (NORMAL)
--- NOTE | 2017-09-27 07:28 | RAD ---
Examination: Portable AP chest History: SOB, COPD Comparison reference: 09/25/2017 Findings: Continued cardiac enlargement, pulmonary congestion and bibasal densities consistent with a irspace consolidation/atelectasis, and pleural fluid. Pacing device is unchanged in position. There i s no evidence for pneumothorax. Impression: Little significant change demonstrated since 2 days prior. Reported By:
[2017-09-27] MEDS: COLACE CAP 100 MG PO SCH (08:00)
[2017-09-27] MEDS: ZITHROMAX INJ 500 MG VIAL 500 MG in NS 250 ML IV 250 ML IV SCH (08:44)
[2017-09-27] MEDS: ROCEPHIN VIAL 1 GM 1 GM in NS 50 ML IV 50 ML IV SCH (08:44)
[2017-09-27] MEDS: NYSTATIN SUSP PO SCH ×4 (08:45→21:29)
[2017-09-27] MEDS: LASIX IVP SCH ×2 (08:45→21:28)
[2017-09-27] MEDS: LANOXIN PO SCH (08:46)
[2017-09-27] MEDS: CORDARONE TAB 200 MG PO SCH (08:46)
[2017-09-27] MEDS: PriLOSEC PO SCH (08:47)
[2017-09-27] MEDS: DIFLUCAN PO SCH (08:47)
[2017-09-27] MEDS: LOPRESSOR TAB 25 MG PO SCH (08:47)
[2017-09-27] MEDS: XARELTO PO SCH (08:47)
[2017-09-27] MEDS: ATIVAN TAB 0.5 MG PO PRN ×3 (08:47→21:26)
[2017-09-27] MEDS: NEURONTIN TAB 600 MG PO SCH ×2 (08:47→21:27)
[2017-09-27] MEDS: BROVANA NEB SCH ×2 (09:20→21:45)
[2017-09-27] MEDS: PULMICORT NEB TX 0.5 MG NEB SCH ×2 (09:20→21:45)
[2017-09-27] MEDS: MORPHINE SULFATE INJ 2 MG INJ IVP PRN (14:01)
[2017-09-27] MEDS: PROVENTIL NEB TX 0.083% 2.5MG/ 3ML NEB PRN (15:24)
[2017-09-27] MEDS: NS 500 ML IV 500 ML IV SCH (17:06)
[2017-09-27] MEDS: DESYREL PO SCH (21:27)
[2017-09-27] MEDS: MUCINEX EXPECTORANT PO SCH (21:27)
[2017-09-28] MEDS: XOPENEX 1.25 MG/3 ML NEBULE NEB SCH ×4 (00:32→17:04)
[2017-09-28] MEDS: Atrovent NEB TX 0.02% NEB SCH ×4 (00:32→17:04)
[2017-09-28] MEDS: NS 500 ML IV 500 ML IV SCH ×2 (00:49→17:19)
[2017-09-28] MEDS: BUTT CREAM (COMPOUND) TOP PRN (05:30)
[2017-09-28] MEDS: NORCO 7.5/325 MG TAB PO PRN ×2 (05:30→14:53)
[2017-09-28 06:16] LABS: BASOPHILS % (AUTO) 0.2 % (0.2-1.0); EOSINOPHILS % (AUTO) 0.1 % (0.9-2.9); HEMATOCRIT 27.3 % (36.0-47.0); HEMOGLOBIN 8.8 g/dL (12.0-16.0); LYMPHOCYTES # (AUTO) 1.2 X10^3/uL (1.3-2.9); LYMPHOCYTES % (AUTO) 22.2 % (21.0-51.0); MEAN CORPUSCULAR HEMOGLOBIN 24.7 pg (27.0-34.0); MEAN CORPUSCULAR HGB CONC 32.2 g/dL (33.0-35.0); MEAN CORPUSCULAR VOLUME 76.5 fL (80.0-100.0); MEAN PLATELET VOLUME 8.2 fL (7.4-11.0); MONOCYTES # (AUTO) 0.3 x10^3/uL (0.3-0.8); MONOCYTES % (AUTO) 5.6 % (0.0-13.0); NEUTROPHILS # (AUTO) 3.8 x10^3/uL (2.2-4.8); NEUTROPHILS % (AUTO) 71.9 % (42.0-75.0); PLATELET COUNT 184 X10^3/uL (150.0-450.0); RED BLOOD COUNT 3.57 X10^6/uL (3.5-5.4); RED CELL DISTRIBUTION WIDTH 18.7 % (11.6-16.5); WHITE BLOOD COUNT 5.2 X10^3/uL (3.6-10.0)
[2017-09-28 06:39] LABS: ALANINE AMINOTRANSFERASE 18 Units/L (12-78); ALBUMIN 2.1 g/dL (3.4-5.0); ALKALINE PHOSPHATASE 57 Units/L (46-116); ASPARTATE AMINO TRANSFERASE 19 Units/L (15-37); BLOOD UREA NITROGEN 26 mg/dL (7-18); CALCIUM 7.3 mg/dL (8.5-10.1); CARBON DIOXIDE 36.2 mmol/L (21-32); CHLORIDE 100 mmol/L (98-107); COR CA(FOR HYPOALB) 8.8 mg/dL (8.5-10.1); CREATININE 1.03 mg/dL (0.55-1.02); SODIUM 139 mmol/L (136-145); TOTAL PROTEIN 5.1 g/dL (6.4-8.2); eGFR BLACK RACES > 60 (>60); eGFR NON BLACK RACES 55 (>60)
[2017-09-28 07:08] LABS: PLATELET MORPHOLOGY COMMENT NORMAL (NORMAL)
[2017-09-28] MEDS: NYSTATIN SUSP PO SCH ×4 (08:44→20:20)
[2017-09-28] MEDS: LANOXIN PO SCH (08:45)
[2017-09-28] MEDS: COLACE CAP 100 MG PO SCH (08:46)
[2017-09-28] MEDS: NEURONTIN TAB 600 MG PO SCH ×2 (08:47→20:21)
[2017-09-28] MEDS: LOPRESSOR TAB 25 MG PO SCH (08:47)
[2017-09-28] MEDS: PriLOSEC PO SCH (08:47)
[2017-09-28] MEDS: XARELTO PO SCH (08:48)
[2017-09-28] MEDS: CORDARONE TAB 200 MG PO SCH (08:48)
[2017-09-28] MEDS: DIFLUCAN PO SCH (08:48)
[2017-09-28] MEDS: LASIX IVP SCH ×2 (08:49→20:20)
[2017-09-28] MEDS: ROCEPHIN VIAL 1 GM 1 GM in NS 50 ML IV 50 ML IV SCH (08:49)
[2017-09-28] MEDS: MUCINEX EXPECTORANT PO SCH ×2 (08:50→20:21)
[2017-09-28] MEDS: PULMICORT NEB TX 0.5 MG NEB SCH ×2 (09:24→20:45)
[2017-09-28] MEDS: BROVANA NEB SCH ×2 (09:24→20:45)
[2017-09-28] MEDS: ZITHROMAX INJ 500 MG VIAL 500 MG in NS 250 ML IV 250 ML IV SCH (09:44)
[2017-09-28] MEDS: ATIVAN TAB 0.5 MG PO PRN ×2 (11:26→21:40)
[2017-09-28] MEDS: DESYREL PO SCH (20:21)
[2017-09-28] MEDS: MAALOX or MYLANTA PO PRN (21:40)
[2017-09-28] MEDS: MORPHINE SULFATE INJ 2 MG INJ IVP PRN (22:27)
[2017-09-29] MEDS: XOPENEX 1.25 MG/3 ML NEBULE NEB SCH ×4 (00:57→18:05)
[2017-09-29] MEDS: Atrovent NEB TX 0.02% NEB SCH ×5 (00:57→18:05)
[2017-09-29] MEDS: XOPENEX 1.25 MG/3 ML NEBULE NEB PRN ×2 (05:57→16:25)
[2017-09-29 06:17] LABS: BASOPHILS % (AUTO) 0.2 % (0.2-1.0); EOSINOPHILS # (AUTO) 0.1 x10^3/uL (0.0-0.2); EOSINOPHILS % (AUTO) 1.3 % (0.9-2.9); HEMATOCRIT 28.9 % (36.0-47.0); HEMOGLOBIN 9.3 g/dL (12.0-16.0); LYMPHOCYTES # (AUTO) 1.4 X10^3/uL (1.3-2.9); LYMPHOCYTES % (AUTO) 22.8 % (21.0-51.0); MEAN CORPUSCULAR HEMOGLOBIN 24.5 pg (27.0-34.0); MEAN CORPUSCULAR VOLUME 76.4 fL (80.0-100.0); MEAN PLATELET VOLUME 8.2 fL (7.4-11.0); MONOCYTES # (AUTO) 0.2 x10^3/uL (0.3-0.8); MONOCYTES % (AUTO) 3.7 % (0.0-13.0); NEUTROPHILS # (AUTO) 4.5 x10^3/uL (2.2-4.8); PLATELET COUNT 172 X10^3/uL (150.0-450.0); RED BLOOD COUNT 3.78 X10^6/uL (3.5-5.4); RED CELL DISTRIBUTION WIDTH 18.8 % (11.6-16.5); WHITE BLOOD COUNT 6.2 X10^3/uL (3.6-10.0)
[2017-09-29 06:26] LABS: ALANINE AMINOTRANSFERASE 18 Units/L (12-78); ALKALINE PHOSPHATASE 59 Units/L (46-116); ASPARTATE AMINO TRANSFERASE 16 Units/L (15-37); BLOOD UREA NITROGEN 22 mg/dL (7-18); CALCIUM 7.5 mg/dL (8.5-10.1); CHLORIDE 102 mmol/L (98-107); COR CA(FOR HYPOALB) 9.1 mg/dL (8.5-10.1); CREATININE 0.98 mg/dL (0.55-1.02); SODIUM 141 mmol/L (136-145); eGFR BLACK RACES > 60 (>60); eGFR NON BLACK RACES 58 (>60)
[2017-09-29 06:56] LABS: PLATELET MORPHOLOGY COMMENT NORMAL (NORMAL)
[2017-09-29 06:57] LABS: HYPOCHROMASIA HYPO
[2017-09-29] MEDS: DIFLUCAN PO SCH (08:26)
[2017-09-29] MEDS: XARELTO PO SCH (08:26)
[2017-09-29] MEDS: NYSTATIN SUSP PO SCH ×4 (08:26→20:41)
[2017-09-29] MEDS: CORDARONE TAB 200 MG PO SCH (08:27)
[2017-09-29] MEDS: LANOXIN PO SCH (08:27)
[2017-09-29] MEDS: MUCINEX EXPECTORANT PO SCH ×2 (08:28→20:42)
[2017-09-29] MEDS: LOPRESSOR TAB 25 MG PO SCH (08:28)
[2017-09-29] MEDS: NEURONTIN TAB 600 MG PO SCH ×2 (08:28→20:42)
[2017-09-29] MEDS: NORCO 7.5/325 MG TAB PO PRN (08:28)
[2017-09-29] MEDS: PriLOSEC PO SCH (08:28)
[2017-09-29] MEDS: ROCEPHIN VIAL 1 GM 1 GM in NS 50 ML IV 50 ML IV SCH (08:29)
[2017-09-29] MEDS: ZITHROMAX INJ 500 MG VIAL 500 MG in NS 250 ML IV 250 ML IV SCH (08:29)
[2017-09-29] MEDS: LASIX IVP SCH ×2 (08:29→20:41)
[2017-09-29] MEDS: COLACE CAP 100 MG PO SCH (08:29)
[2017-09-29] MEDS ORDERED: LOPRESSOR TAB 25 MG PO ONE (08:45)
[2017-09-29] MEDS ORDERED: LASIX IVP ONE (09:00)
[2017-09-29] MEDS: BROVANA NEB SCH ×3 (09:28→20:28)
[2017-09-29] MEDS: PULMICORT NEB TX 0.5 MG NEB SCH ×3 (09:28→20:27)
[2017-09-29] MEDS: NS 500 ML IV 500 ML IV SCH (17:52)
[2017-09-29] MEDS: DESYREL PO SCH (20:42)
[2017-09-29] MEDS: ATIVAN TAB 0.5 MG PO PRN (20:51)
[2017-09-29] MEDS: MAALOX or MYLANTA PO PRN (20:51)
[2017-09-30] MEDS: Atrovent NEB TX 0.02% NEB SCH ×3 (00:55→13:36)
[2017-09-30] MEDS: XOPENEX 1.25 MG/3 ML NEBULE NEB SCH ×4 (00:55→16:22)
[2017-09-30 06:09] LABS: BASOPHILS % (AUTO) 0.4 % (0.2-1.0); EOSINOPHILS # (AUTO) 0.2 x10^3/uL (0.0-0.2); EOSINOPHILS % (AUTO) 4.3 % (0.9-2.9); HEMATOCRIT 27.8 % (36.0-47.0); HEMOGLOBIN 8.9 g/dL (12.0-16.0); LYMPHOCYTES % (AUTO) 21.2 % (21.0-51.0); MEAN CORPUSCULAR HEMOGLOBIN 24.4 pg (27.0-34.0); MEAN CORPUSCULAR HGB CONC 31.9 g/dL (33.0-35.0); MEAN CORPUSCULAR VOLUME 76.5 fL (80.0-100.0); MEAN PLATELET VOLUME 8.4 fL (7.4-11.0); MONOCYTES # (AUTO) 0.2 x10^3/uL (0.3-0.8); MONOCYTES % (AUTO) 4.1 % (0.0-13.0); NEUTROPHILS # (AUTO) 3.2 x10^3/uL (2.2-4.8); PLATELET COUNT 135 X10^3/uL (150.0-450.0); RED BLOOD COUNT 3.63 X10^6/uL (3.5-5.4); RED CELL DISTRIBUTION WIDTH 18.9 % (11.6-16.5); WHITE BLOOD COUNT 4.6 X10^3/uL (3.6-10.0)
[2017-09-30 06:21] LABS: ALANINE AMINOTRANSFERASE 16 Units/L (12-78); ALBUMIN 1.9 g/dL (3.4-5.0); ALKALINE PHOSPHATASE 58 Units/L (46-116); ASPARTATE AMINO TRANSFERASE 18 Units/L (15-37); BLOOD UREA NITROGEN 19 mg/dL (7-18); CALCIUM 7.7 mg/dL (8.5-10.1); CARBON DIOXIDE 38.7 mmol/L (21-32); CHLORIDE 101 mmol/L (98-107); COR CA(FOR HYPOALB) 9.4 mg/dL (8.5-10.1); CREATININE 1.06 mg/dL (0.55-1.02); SODIUM 140 mmol/L (136-145); TOTAL PROTEIN 4.9 g/dL (6.4-8.2); eGFR BLACK RACES > 60 (>60); eGFR NON BLACK RACES 53 (>60)
[2017-09-30 06:42] LABS: PLATELET MORPHOLOGY COMMENT NORMAL (NORMAL)
[2017-09-30 06:43] LABS: HYPOCHROMASIA 1+
--- NOTE | 2017-09-30 07:20 | RAD ---
Examination: Portable AP chest History: SOB, CHF COPD Comparison reference: 09/27/2017 Findings: Continued cardiac enlargement with stable position of pacing device. Persistent retrocardia c density consistent with airspace disease and pleural fluid. Little if any change in similar process at the right base, obscuring the diaphragm. There is no evidence for pneumothorax. Impression: Little change since 09/27/2017. Stable cardiomegaly, vascular congestion and bibasal dens ities consistent with pneumonia, atelectasis and fluid. Reported By:
[2017-09-30] MEDS: DIFLUCAN PO SCH (08:33)
[2017-09-30] MEDS: BROVANA NEB SCH ×2 (08:52→20:54)
[2017-09-30] MEDS: PULMICORT NEB TX 0.5 MG NEB SCH ×2 (08:52→20:54)
[2017-09-30] MEDS: MUCINEX EXPECTORANT PO SCH (09:01)
[2017-09-30] MEDS: ROCEPHIN VIAL 1 GM 1 GM in NS 50 ML IV 50 ML IV SCH (09:02)
[2017-09-30] MEDS: ZITHROMAX INJ 500 MG VIAL 500 MG in NS 250 ML IV 250 ML IV SCH (09:02)
[2017-09-30] MEDS: NORCO 7.5/325 MG TAB PO PRN ×2 (09:03→20:07)
[2017-09-30] MEDS: LOPRESSOR TAB 25 MG PO SCH (09:03)
[2017-09-30] MEDS: PriLOSEC PO SCH (09:03)
[2017-09-30] MEDS: XARELTO PO SCH (09:04)
[2017-09-30] MEDS: LANOXIN PO SCH (09:04)
[2017-09-30] MEDS: ATIVAN TAB 0.5 MG PO PRN (09:04)
[2017-09-30] MEDS: CORDARONE TAB 200 MG PO SCH (09:04)
[2017-09-30] MEDS: NEURONTIN TAB 600 MG PO SCH ×2 (09:04→20:07)
[2017-09-30] MEDS: LASIX IVP SCH ×2 (09:05→20:07)
[2017-09-30] MEDS: NYSTATIN SUSP PO SCH ×5 (09:05→20:06)
[2017-09-30] MEDS: COLACE CAP 100 MG PO SCH (09:05)
[2017-09-30] MEDS: ROBITUSSIN DM PO SCH ×4 (09:20→20:06)
[2017-09-30] MEDS: DESYREL PO SCH (20:07)
[2017-10-01] MEDS: Atrovent NEB TX 0.02% NEB SCH ×3 (00:50→13:40)
[2017-10-01] MEDS: XOPENEX 1.25 MG/3 ML NEBULE NEB SCH ×3 (00:51→13:41)
[2017-10-01 06:13] LABS: ALANINE AMINOTRANSFERASE 15 Units/L (12-78); ALKALINE PHOSPHATASE 58 Units/L (46-116); ASPARTATE AMINO TRANSFERASE 21 Units/L (15-37); BLOOD UREA NITROGEN 15 mg/dL (7-18); CALCIUM 7.9 mg/dL (8.5-10.1); CARBON DIOXIDE 36.6 mmol/L (21-32); CHLORIDE 99 mmol/L (98-107); COR CA(FOR HYPOALB) 9.5 mg/dL (8.5-10.1); CREATININE 1.01 mg/dL (0.55-1.02); SODIUM 139 mmol/L (136-145); TOTAL PROTEIN 4.9 g/dL (6.4-8.2); eGFR BLACK RACES > 60 (>60); eGFR NON BLACK RACES 56 (>60)
[2017-10-01 07:08] LABS: BASOPHILS % (AUTO) 0.2 % (0.2-1.0); EOSINOPHILS # (AUTO) 0.2 x10^3/uL (0.0-0.2); EOSINOPHILS % (AUTO) 3.8 % (0.9-2.9); HEMATOCRIT 26.6 % (36.0-47.0); HEMOGLOBIN 8.6 g/dL (12.0-16.0); LYMPHOCYTES % (AUTO) 21.6 % (21.0-51.0); MEAN CORPUSCULAR HEMOGLOBIN 24.3 pg (27.0-34.0); MEAN CORPUSCULAR HGB CONC 32.2 g/dL (33.0-35.0); MEAN CORPUSCULAR VOLUME 75.6 fL (80.0-100.0); MEAN PLATELET VOLUME 8.5 fL (7.4-11.0); MONOCYTES # (AUTO) 0.2 x10^3/uL (0.3-0.8); MONOCYTES % (AUTO) 4.1 % (0.0-13.0); NEUTROPHILS # (AUTO) 3.3 x10^3/uL (2.2-4.8); NEUTROPHILS % (AUTO) 70.3 % (42.0-75.0); PLATELET COUNT 123 X10^3/uL (150.0-450.0); RED BLOOD COUNT 3.52 X10^6/uL (3.5-5.4); RED CELL DISTRIBUTION WIDTH 18.9 % (11.6-16.5); WHITE BLOOD COUNT 4.6 X10^3/uL (3.6-10.0)
[2017-10-01 07:23] LABS: ANISOCYTOSIS SLIGHT; HYPOCHROMASIA 1+; PLATELET MORPHOLOGY COMMENT NORMAL (NORMAL)
[2017-10-01] MEDS: ROBITUSSIN DM PO SCH ×3 (08:46→13:51)
[2017-10-01] MEDS: NYSTATIN SUSP PO SCH ×2 (08:46→13:07)
[2017-10-01] MEDS: ROCEPHIN VIAL 1 GM 1 GM in NS 50 ML IV 50 ML IV SCH (08:46)
[2017-10-01] MEDS: COLACE CAP 100 MG PO SCH (08:47)
[2017-10-01] MEDS: LANOXIN PO SCH (08:48)
[2017-10-01] MEDS: NEURONTIN TAB 600 MG PO SCH (08:48)
[2017-10-01] MEDS: LOPRESSOR TAB 25 MG PO SCH (08:48)
[2017-10-01] MEDS: PriLOSEC PO SCH (08:48)
[2017-10-01] MEDS: CORDARONE TAB 200 MG PO SCH (08:49)
[2017-10-01] MEDS: XARELTO PO SCH (08:49)
[2017-10-01] MEDS: LASIX IVP SCH (08:50)
[2017-10-01] MEDS: ZITHROMAX INJ 500 MG VIAL 500 MG in NS 250 ML IV 250 ML IV SCH (08:54)
[2017-10-01] MEDS: PULMICORT NEB TX 0.5 MG NEB SCH (09:30)
[2017-10-01] MEDS: BROVANA NEB SCH (09:30)
[2017-10-01] MEDS ORDERED: MILK OF MAGNESIA PO SCH (11:00)
[2017-10-01] MEDS ORDERED: COLACE CAP 100 MG PO SCH (11:00)
[2017-10-01] MEDS: NORCO 7.5/325 MG TAB PO PRN (11:40)
[2017-10-01 16:33] VITALS: BP 92/51
== END 2017-10-01 16:30 | DRG 204 ==
LOC: ICU 15:02
PROVIDERS: ADMIT Internal Medicine; ATTEND Internal Medicine
DX: R06.03 Acute respiratory distress (principal); J44.1 Chronic obstructive pulmonary disease with (acute) exacerbation; R06.02 Shortness of breath; J20.8 Acute bronchitis due to other specified organisms; M54.5 Low back pain; I48.91 Unspecified atrial fibrillation; F41.8 Other specified anxiety disorders; F32.89 Other specified depressive episodes; M19.90 Unspecified osteoarthritis, unspecified site; Z66 Do not resuscitate; B95.62 Methicillin resistant Staphylococcus aureus infection as the cause of diseases classified elsewhere
CPT/HCPCS: 36415; 36600; 71010; 80048; 80053; 80162; 81001; 82550; 82553; 82803; 83735; 83880; 84439; 84443; 84484; 85025; 87070; 87077; 87086; 87186; 87205; 93005; 93010; 94640; 97535; 99231; A4216; A4222; J0456; J0696; J1940; J2270; J2405; J2920; J2930; J7613; J7626; J7644

== ENCOUNTER 2017-10-13 13:54 | Inpatient (IN) | payer OTHER, MEDICAID ==
[2017-10-13 14:41] VITALS: BMI 19.1
--- NOTE | 2017-10-13 14:42 | DR.SOBA ---
HPI - Time Seen Time seen: 14:35 - Complaints Chief Complaint Doctors Comments: Patient presented via EMS with complaint of severe COPD. [facility] and did not improve. She is afebrile, usually on 3L oxygen and gets Duo nebs Q4h and albuterol prn. Chief Complaint:: EMS TO TRANSPORT PT TO ER AND PT REFUSED REQUESTED TO GO TO THE ER IN [place]..... STAFF STATES PT SATS LOW AND PT HAS COPD , AND SATS 60-70 ... ON 4 LPM OF .... DUO NEB GIVEN PER [facility] . Self Treatment fo Chief Complaint: EMS STATES UPON REC'D PT 60.. AND PT PLACED ON 6 LPM AND SATS ARE 86-89 - Source History Provided: [facility] - Mode of Arrival Mode of Arrival: EMS - Timing Onset of Chief Complaint: 10/13/17 PMH - PMH Past Medical History: Yes Past Medical History: Anemia, Arthritis, CHF, Coronary Artery Disease, Dementia , GERD, Hypertension, Renal Disease Past Surgical History: Yes Surgical History: Appendectomy, Cholecystectomy, Hysterectomy, Joint Replacement , Ortho Surgery, Tonsillectomy, Other - Family History History of Family Medical Conditions: Yes Family Medical History: Diabetes Mellitus, [place], Heart Failure, Sudden Cardiac , Hypertension - Social History Does patient currently use any type of tobacco product: No Have you used tobacco products in the last 12 months: No Type of Tobacco Use: None Does any household member use tobacco: No Do you use any recreational Drugs:: No Lives Where: [facility] - infectious screening Have you traveled outside the country in the last 6 months?: No ROS - Review of Systems Eyes: No Symptoms Reported ENTM: No Symptoms Reported Respiratoy: No Symptoms Reported Cardiovascular: No Symptoms Reported Gastrointestinal/Abdominal: No Symptoms Reported Genitourinary: No Symptoms Reported Neurological: No Symptoms Reported Musculoskeletal: No Symptoms Reported Integumentary: No Symptoms Reported Hematologic/Lymphatic: No Symptoms Reported Endocrine: No Symptoms Reported Psychiatric: No Symptoms Reported All Other Systems: Reviewed and Negative PE - Vital Signs Vitals: Pulse Rate 79 Respiratory Rate 22 Blood Pressure [Left Calf] 95/53 Blood Pressure [Left Arm] 92/51 Blood Pressure [Right Arm] 101/51 Blood Pressure 96/55 O2 Sat by Pulse Oximetry 88 - General General Appearance: Alert, In No Apparent Distress - Head Head Exam: Normal Inspection, Atraumatic - Eyes Eye exam: Normal Appearance, PERRL, EOMI - ENT ENT Exam: Normal Exam - Neck Neck Exam: Normal Inspection, Full ROM - Chest Chest Inspection: Normal Inspection - Respiratory Respiratory Exam: Normal Lung Sounds Bilat Respiratory Exam: Bilateral Clear to Auscultation - Cardiovascular Cardiovascular Exam: Regular Rate, Normal Rhythm - Abdominal Exam Abdominal Exam: Normal Inspection, Normal Bowel Sounds Abdominal Tenderness: negative: RUQ, RLQ, LUQ, LLQ, Epigastrium, Suprapubic, Diffuse, Mild, Moderate, Severe, Other - Extremities Extremities Exam: Normal Inspection, Full ROM - Back Back Exam: Normal Inspection, Full ROM - Neurologic Neurological Exam: Alert, Oriented X3, CN II-XII Intact - Psychiatric Psychiatric Exam: Normal Affect, Normal Mood - Skin Skin Exam: Warm, Dry, Intact Course - Reevaluation 1st: Improved - Consultation Called: 13:10 (Agreed to admis to further management) ROR - Labs Reviewed Result Diagrams: 10/13/17 14:58 10/13/17 14:58 Laboratory: WBC 4.9 X10^3/uL (3.6-10.0) 10/13/17 14:58 RBC 3.38 X10^6/uL (3.5-5.4) L 10/13/17 14:58 Hgb 8.3 g/dL (12.0-16.0) L 10/13/17 14:58 Hct 25.5 % (36.0-47.0) L 10/13/17 14:58 MCV 75.4 fL (80.0-100.0) L 10/13/17 14:58 MCH 24.7 pg (27.0-34.0) L 10/13/17 14:58 MCHC 32.7 g/dL (33.0-35.0) L 10/13/17 14:58 RDW 20.9 % (11.6-16.5) H 10/13/17 14:58 Plt Count 203 X10^3/uL (150.0-450.0) 10/13/17 14:58 Plt Count Comment Adequate (ADEQUATE) 10/13/17 14:58 MPV 7.7 fL (7.4-11.0) 10/13/17 14:58 Neut % 67.7 % (42.0-75.0) 10/13/17 14:58 Lymph % 23.7 % (21.0-51.0) 10/13/17 14:58 [place] % 6.6 % (0.0-13.0) 10/13/17 14:58 Eos % 0.7 % (0.9-2.9) L 10/13/17 14:58 Baso % 1.3 % (0.2-1.0) H 10/13/17 14:58 Neut # 3.3 x10^3/uL (2.2-4.8) 10/13/17 14:58 Lymph # 1.2 X10^3/uL (1.3-2.9) L 10/13/17 14:58 [place] # 0.3 x10^3/uL (0.3-0.8) 10/13/17 14:58 Eos # 0.0 x10^3/uL (0.0-0.2) 10/13/17 14:58 Baso # 0.1 X10^3/uL (0.0-0.1) 10/13/17 14:58 Absolute Nucleated RBC 0.1 /100WBC 10/13/17 14:58 Plt Morphology Comment Normal (NORMAL) 10/13/17 14:58 RBC Morphology Abnormal (NORMAL) A 10/13/17 14:58 Hypochromasia Slight A 10/13/17 14:58 Anisocytosis 1+ A 10/13/17 14:58 Sample Site Lra 10/13/17 15:20 ABG pH 7.450 (7.35-7.45) 10/13/17 15:20 ABG pCO2 55.0 mmHg (35.0-45.0) H* 10/13/17 15:20 ABG pO2 53.0 mmHg (80.0-100.0) L 10/13/17 15:20 ABG HCO3 38.2 mmol/L (22-26) H* 10/13/17 15:20 ABG O2 Saturation 89.0 % (90-100) L 10/13/17 15:20 ABG Base Excess 12.1 mmol/L (-2.0-2.0) H 10/13/17 15:20 Alexi Test Pos 10/13/17 15:20 A-a Gradient 106.0 mmHg 10/13/17 15:20 FiO2 32.000 10/13/17 15:20 Blood Gas Comments Chely well cs 10/13/17 15:20 Sodium 135 mmol/L (136-145) L 10/13/17 14:58 Corrected Sodium TNP 10/13/17 14:58 Potassium 4.8 mmol/L (3.5-5.1) 10/13/17 14:58 Chloride 95 mmol/L (98-107) L 10/13/17 14:58 Carbon Dioxide 35.8 mmol/L (21-32) H 10/13/17 14:58 BUN 17 mg/dL (7-18) 10/13/17 14:58 Creatinine 1.44 mg/dL (0.55-1.02) H 10/13/17 14:58 Est GFR (MDRD) Af Amer 45 (>60) L 10/13/17 14:58 Est GFR (MDRD) Non-Af 37 (>60) L 10/13/17 14:58 Glucose 93 mg/dL (65-99) 10/13/17 14:58 Calcium 8.6 mg/dL (8.5-10.1) 10/13/17 14:58 Urine pH 7.0 (5.0 - 8.0) 10/13/17 15:22 Ur Specific [place] 1.010 (1.000-1.030) 10/13/17 15:22 Urine Protein Negative (NEGATIVE) 10/13/17 15:22 Urine Glucose (UA) Negative (NEGATIVE) 10/13/17 15:22 Urine Ketones Negative (NEGATIVE) 10/13/17 15:22 Urine Occult Blood Negative (NEGATIVE) 10/13/17 15:22 Urine Nitrite Negative (NEGATIVE) 10/13/17 15:22 Urine Bilirubin Negative (NEGATIVE) 10/13/17 15:22 Urine Urobilinogen Normal (NORMAL) 10/13/17 15:22 Ur Leukocyte Esterase Negative (NEGATIVE) 10/13/17 15:22 - XRAY XRAY Interpreted by: Radiologist (Chest: Continued cardiomegaly and arteriosclerotic aorta. There is interval improvement in the previous airspace disease at the left base. There is persistent opacification at the right base, obscuring the diaphragm and costophrenic angle, Central vascular congestion again noted. Stable position of pacemater. Impression: Interval improvement especially in appearance of the left lower lobe and pleural space. Persistent pleural parenchymal changes at the right base. No new abnormality demonstrated) - Diagnosis Discharge Problem: COPD exacerbation, Hypoxemia - Discharge Plan Condition: Stable - Follow ups/Referrals Follow ups/Referrals: CARL DICKERSON [Primary Care Provider] - 3 days - Instructions
[2017-10-13 15:14] LABS: BASOPHILS # (AUTO) 0.1 X10^3/uL (0.0-0.1); BASOPHILS % (AUTO) 1.3 % (0.2-1.0); EOSINOPHILS % (AUTO) 0.7 % (0.9-2.9); HEMATOCRIT 25.5 % (36.0-47.0); HEMOGLOBIN 8.3 g/dL (12.0-16.0); LYMPHOCYTES # (AUTO) 1.2 X10^3/uL (1.3-2.9); LYMPHOCYTES % (AUTO) 23.7 % (21.0-51.0); MEAN CORPUSCULAR HEMOGLOBIN 24.7 pg (27.0-34.0); MEAN CORPUSCULAR HGB CONC 32.7 g/dL (33.0-35.0); MEAN CORPUSCULAR VOLUME 75.4 fL (80.0-100.0); MEAN PLATELET VOLUME 7.7 fL (7.4-11.0); MONOCYTES # (AUTO) 0.3 x10^3/uL (0.3-0.8); MONOCYTES % (AUTO) 6.6 % (0.0-13.0); NEUTROPHILS # (AUTO) 3.3 x10^3/uL (2.2-4.8); NEUTROPHILS % (AUTO) 67.7 % (42.0-75.0); PLATELET COUNT 203 X10^3/uL (150.0-450.0); RED BLOOD COUNT 3.38 X10^6/uL (3.5-5.4); RED CELL DISTRIBUTION WIDTH 20.9 % (11.6-16.5); WHITE BLOOD COUNT 4.9 X10^3/uL (3.6-10.0)
[2017-10-13 15:16] LABS: BLOOD UREA NITROGEN 17 mg/dL (7-18); CALCIUM 8.6 mg/dL (8.5-10.1); CARBON DIOXIDE 35.8 mmol/L (21-32); CHLORIDE 95 mmol/L (98-107); CREATININE 1.44 mg/dL (0.55-1.02); SODIUM 135 mmol/L (136-145); eGFR BLACK RACES 45 (>60); eGFR NON BLACK RACES 37 (>60)
[2017-10-13 15:23] LABS: ABG BASE EXCESS 12.1 mmol/L (-2.0-2.0)
[2017-10-13 15:24] LABS: ABG ALLEN TEST POS; ABG HCO3 38.2 mmol/L (22-26)
[2017-10-13] MEDS ORDERED: DUONEB 0.5 MG/3 MG ONE (15:26)
--- NOTE | 2017-10-13 15:27 | RAD ---
Examination: Portable AP chest History: Cough Comparison reference: 09/30/2017 Findings: Continued cardiomegaly and arteriosclerotic aorta. There is interval improvement in the pre vious airspace disease at the left base. There is persistent opacification at the right base, obscuri ng the diaphragm and costophrenic angle. Central vascular congestion again noted. Stable position of pacemaker. Impression: Interval improvement especially in appearance of the left lower lobe and pleural space. P ersistent pleural-parenchymal changes at the right base. No new abnormality demonstrated. New Reported By:
[2017-10-13 15:29] LABS: BILIRUBIN,URINE NEGATIVE (NEGATIVE); BLOOD/HEMOGLOBIN,URINE NEGATIVE (NEGATIVE); GLUCOSE, URINE NEGATIVE (NEGATIVE); KETONES,URINE NEGATIVE (NEGATIVE); LEUKOCYTE ESTERASE ,URINE NEGATIVE (NEGATIVE); NITRITES,URINE NEGATIVE (NEGATIVE); PROTEIN,URINE NEGATIVE (NEGATIVE); UROBILINOGEN,URINE NORMAL (NORMAL)
[2017-10-13 15:30] LABS: HYPOCHROMASIA SLIGHT; PLATELET MORPHOLOGY COMMENT NORMAL (NORMAL)
[2017-10-13] MEDS ORDERED: DUONEB 0.5 MG/3 MG NEB ONE (15:30)
[2017-10-13 15:31] LABS: ANISOCYTOSIS 1+
[2017-10-13] MEDS: SOLU-Medrol 125 MG VIAL IVP SCH (15:32)
[2017-10-13 15:35] LABS: APPEARANCE,URINE CLEAR (CLEAR); COLOR,URINE YELLOW (YELLOW); RBC,URINE NONE SEEN /HPF (NEGATIVE); SQUAMOUS EPITHELIAL CELL,UR NEGATIVE /HPF (NEGATIVE)
[2017-10-13 15:36] LABS: BACTERIA,URINE NEGATIVE /HPF (NEGATIVE)
[2017-10-13] MEDS ORDERED: DUONEB 0.5 MG/3 MG IN SCH (16:00)
[2017-10-13] MEDS: DUONEB 0.5 MG/3 MG NEB SCH ×3 (16:36→20:00)
[2017-10-13 16:53] LABS: ALANINE AMINOTRANSFERASE 13 Units/L (12-78); ALBUMIN 2.9 g/dL (3.4-5.0); ALKALINE PHOSPHATASE 108 Units/L (46-116); ASPARTATE AMINO TRANSFERASE 28 Units/L (15-37); COR CA(FOR HYPOALB) 9.5 mg/dL (8.5-10.1)
[2017-10-13] MEDS: NORCO 7.5/325 MG TAB PO PRN ×2 (17:33→22:28)
[2017-10-13] MEDS: NYSTATIN SUSP PO SCH ×2 (17:33→20:39)
[2017-10-13] MEDS: BROVANA IN SCH (20:00)
[2017-10-13] MEDS: MAALOX or MYLANTA PO PRN (20:39)
[2017-10-13] MEDS: MUCINEX EXPECTORANT PO SCH (21:10)
[2017-10-13] MEDS: ATIVAN TAB 0.5 MG PO PRN (21:10)
[2017-10-13] MEDS: NEURONTIN TAB 600 MG PO SCH (21:10)
[2017-10-14] MEDS: DUONEB 0.5 MG/3 MG NEB SCH ×6 (00:42→20:14)
[2017-10-14] MEDS: NEURONTIN TAB 600 MG PO SCH ×3 (05:51→21:15)
[2017-10-14 05:57] LABS: BASOPHILS % (AUTO) 0.1 % (0.2-1.0); HEMATOCRIT 24.8 % (36.0-47.0); HEMOGLOBIN 8.2 g/dL (12.0-16.0); LYMPHOCYTES # (AUTO) 0.6 X10^3/uL (1.3-2.9); LYMPHOCYTES % (AUTO) 16.9 % (21.0-51.0); MEAN CORPUSCULAR HEMOGLOBIN 24.6 pg (27.0-34.0); MEAN CORPUSCULAR HGB CONC 32.9 g/dL (33.0-35.0); MEAN CORPUSCULAR VOLUME 74.6 fL (80.0-100.0); MONOCYTES # (AUTO) 0 x10^3/uL (0.3-0.8); MONOCYTES % (AUTO) 1.3 % (0.0-13.0); NEUTROPHILS # (AUTO) 2.8 x10^3/uL (2.2-4.8); NEUTROPHILS % (AUTO) 81.7 % (42.0-75.0); PLATELET COUNT 199 X10^3/uL (150.0-450.0); RED BLOOD COUNT 3.32 X10^6/uL (3.5-5.4); RED CELL DISTRIBUTION WIDTH 21.1 % (11.6-16.5); WHITE BLOOD COUNT 3.5 X10^3/uL (3.6-10.0)
[2017-10-14 06:43] LABS: ANISOCYTOSIS 1+; PLATELET MORPHOLOGY COMMENT NORMAL (NORMAL)
[2017-10-14 06:51] LABS: ALBUMIN 2.8 g/dL (3.4-5.0); CALCIUM 8.7 mg/dL (8.5-10.1); CARBON DIOXIDE 31.9 mmol/L (21-32); COR CA(FOR HYPOALB) 9.7 mg/dL (8.5-10.1); CREATININE 1.35 mg/dL (0.55-1.02); TOTAL PROTEIN 6.7 g/dL (6.4-8.2)
--- NOTE | 2017-10-14 07:22 | RAD ---
HISTORY: Cough Study: Chest AP portable Comparison: 10/13/2017 Findings: There is a pacemaker present on the right obscuring a portion of the right upper lobe. The heart is e nlarged. No congestive heart failure is noted. The aorta is ectatic and calcified. The lungs are gene rally hypo inflated. Persistent infiltrate remains in the right lung base. The remainder of the lung melgoza are free of acute alveolar infiltrates. No pleural effusions are identified. The bony thorax i s unremarkable. IMPRESSION: Cardiomegaly without congestive heart failure Persistent right basilar infiltrate Reported By:
[2017-10-14] MEDS: COLACE CAP 100 MG PO SCH (08:32)
[2017-10-14] MEDS: CORDARONE TAB 200 MG PO SCH (08:33)
[2017-10-14] MEDS: SOLU-Medrol 125 MG VIAL IVP SCH (08:33)
[2017-10-14] MEDS: LASIX PO SCH (08:33)
[2017-10-14] MEDS: PriLOSEC PO SCH (08:33)
[2017-10-14] MEDS: LOPRESSOR TAB 25 MG PO SCH (08:33)
[2017-10-14] MEDS: MUCINEX EXPECTORANT PO SCH ×2 (08:34→21:15)
[2017-10-14] MEDS: NYSTATIN SUSP PO SCH ×4 (08:34→21:15)
[2017-10-14] MEDS: BROVANA IN SCH ×2 (09:28→20:14)
[2017-10-14] MEDS: NORCO 7.5/325 MG TAB PO PRN ×2 (15:53→21:52)
--- NOTE | 2017-10-14 17:52 | DR.H&P ---
H&P - History & Physical for Day of: H&P Date: 10/13/17 - Chief Complaint Chief Complaint: sob - Allergies Allergies/Adverse Reactions: Allergies Allergy/AdvReac Type Severity Reaction Status Date / Time tramadol AdvReac Verified 10/13/17 14:47 - History of Present Illness History of Present Illness: the patient is a 77-year-old white female resident of [facility] admitted from the ER last night after presenting with shortness of breath and hypoxia. patient had abnormal chest x-ray findings as well asabnormal ABG on ER presentation. Patient has a history of CHF and COPD. Patient was admitted to ICU for further evaluation of respiratory distress as well as CHF and COPD symptoms. Plan to resume patient's home medication, obtain sputum cultures, respiratory care and supplemental O2. - Past Medical History Past Medical History: Anemia, Arthritis, CHF, Coronary Artery Disease, Dementia , GERD, Hypertension, Renal Disease - Past Surgical History Surgical History: Appendectomy, Cholecystectomy, Hysterectomy, Joint Replacement , Ortho Surgery, Tonsillectomy, Other - Family History Family Medical History: Diabetes Mellitus, [place], Heart Failure, Sudden Cardiac , Hypertension - Social History Does patient currently use any type of tobacco product: No Have you used tobacco products in the last 12 months: No Type of Tobacco Use: None Does any household member use tobacco: No Alcohol Use: None - Medications Home Medications: Aluminum & Magnesium Hydroxide [MAALOX or MYLANTA SUSP *] 30 ml PO Q4H PRN 10/13 [History Confirmed 10/13/17] Arformoterol Tartrate [Brovana] 1 inh INH BID 10/13/17 [History Confirmed ] Budesonide Nebule 0.5 mg/2 ml [PULMICORT NEBULE 0.5 MG *] 1 inh INH BID [History Confirmed 10/13/17] Digoxin [LANOXIN TAB 0.125 MG *] 0.125 mg PO DAILY 10/13/17 [History Confirmed 10/13/17] Guaifenesin [Mucus Relief] 1 tab PO BID 10/13/17 [History Confirmed 10/13/17] Ipratropium/Albuterol Nebule [DUONEB 0.5 MG/3 MG NEBULE *] 1 inh INH Q4H [History Confirmed 10/13/17] Potassium Chloride 20 meq PO DAILY 10/13/17 [History Confirmed 10/13/17] Rivaroxaban [Xarelto] 20 mg PO DAILY 10/13/17 [History Confirmed 10/13/17] Trazodone HCl 25 mg PO HS 10/13/17 [History Confirmed 10/13/17] - Review of Systems Constitutional: Weakness Eyes: No Symptoms Reported ENT: No Symptoms Reported Respiratory: Cough, Shortness of Breath, Wheezing Cardiovascular: Chest Pain, Palpitations, Edema Gastrointestinal: Nausea Genitourinary: No Symptoms Reported Musculoskeletal: Back Pain Skin: No Symptoms Reported Neurological: No Symptoms Reported - Physical Exam Vital Signs: Temperature 98.5 F Pulse Rate [Apical] 61 Pulse Rate [Left Brachial] 96 Pulse Rate 83 Respiratory Rate 22 Blood Pressure [Left Calf] 95/53 Blood Pressure [Left Arm] 139/64 Blood Pressure [Right Arm] 107/61 Blood Pressure 96/55 O2 Sat by Pulse Oximetry 98 Eyes: Normal Ear: Normal Nose: Normal Throat: Dry Respiratory: Wheezes Throughout, RLL Diminished, LLL Diminished Cardiovascular: Edema (mild bilateral edema to lower extremities) : Normal Auscultation: Bowel Sounds: Normal Tenderness: Normal Skin: Decreased Turgur Musculoskeletal: Back:Lumbar, Motor Deficit Psychiatric: Anxiety Affect: Anxious Speech Pattern: Clear, Appropriate - Assessment/Plan (1) CHF (congestive heart failure) Status: Acute (2) COPD exacerbation Status: Acute (3) Pneumonia Status: Acute (4) SOB (shortness of breath) Status: Acute Plan: CXR, ABG ON ADMISSION, RESP CARE. JET NEBS, SUPPLEMENTAL O2. IV ATBX, CARDIAC MONITORING. RESUME HOME MEDS. SPUTUM CULTURE, UA (5) Coronary artery disease Status: Chronic (6) Essential hypertension, benign Status: Chronic (7) GERD (gastroesophageal reflux disease) Status: Chronic (8) History of atrial fibrillation Status: Chronic
[2017-10-14] MEDS: ATIVAN TAB 0.5 MG PO PRN (21:53)
[2017-10-15] MEDS: DUONEB 0.5 MG/3 MG NEB SCH ×6 (01:13→21:21)
[2017-10-15] MEDS: NEURONTIN TAB 600 MG PO SCH ×3 (05:05→21:33)
[2017-10-15 06:12] LABS: BASOPHILS % (AUTO) 0.1 % (0.2-1.0); HEMATOCRIT 24.5 % (36.0-47.0); HEMOGLOBIN 8.1 g/dL (12.0-16.0); LYMPHOCYTES # (AUTO) 0.8 X10^3/uL (1.3-2.9); LYMPHOCYTES % (AUTO) 15.4 % (21.0-51.0); MEAN CORPUSCULAR HEMOGLOBIN 24.8 pg (27.0-34.0); MEAN CORPUSCULAR HGB CONC 33.2 g/dL (33.0-35.0); MEAN CORPUSCULAR VOLUME 74.7 fL (80.0-100.0); MEAN PLATELET VOLUME 8.2 fL (7.4-11.0); MONOCYTES # (AUTO) 0.2 x10^3/uL (0.3-0.8); MONOCYTES % (AUTO) 3.7 % (0.0-13.0); NEUTROPHILS # (AUTO) 4.1 x10^3/uL (2.2-4.8); NEUTROPHILS % (AUTO) 80.8 % (42.0-75.0); PLATELET COUNT 255 X10^3/uL (150.0-450.0); RED BLOOD COUNT 3.28 X10^6/uL (3.5-5.4); RED CELL DISTRIBUTION WIDTH 20.9 % (11.6-16.5); WHITE BLOOD COUNT 5.1 X10^3/uL (3.6-10.0)
[2017-10-15 06:32] LABS: ALANINE AMINOTRANSFERASE 10 Units/L (12-78); ALBUMIN 2.8 g/dL (3.4-5.0); ALKALINE PHOSPHATASE 91 Units/L (46-116); ASPARTATE AMINO TRANSFERASE 22 Units/L (15-37); BLOOD UREA NITROGEN 22 mg/dL (7-18); CALCIUM 8.8 mg/dL (8.5-10.1); CARBON DIOXIDE 30.2 mmol/L (21-32); CHLORIDE 93 mmol/L (98-107); COR CA(FOR HYPOALB) 9.8 mg/dL (8.5-10.1); CREATININE 1.29 mg/dL (0.55-1.02); SODIUM 134 mmol/L (136-145); TOTAL PROTEIN 6.9 g/dL (6.4-8.2); eGFR BLACK RACES 51 (>60); eGFR NON BLACK RACES 42 (>60)
[2017-10-15 06:55] LABS: ANISOCYTOSIS 1+; HYPOCHROMASIA 1+; MICROCYTOSIS 1+; PLATELET MORPHOLOGY COMMENT NORMAL (NORMAL)
[2017-10-15] MEDS: LOPRESSOR TAB 25 MG PO SCH (09:15)
[2017-10-15] MEDS: LASIX PO SCH (09:15)
[2017-10-15] MEDS: COLACE CAP 100 MG PO SCH (09:15)
[2017-10-15] MEDS: PriLOSEC PO SCH (09:16)
[2017-10-15] MEDS: CORDARONE TAB 200 MG PO SCH (09:16)
[2017-10-15] MEDS: NYSTATIN SUSP PO SCH ×3 (09:17→21:33)
[2017-10-15] MEDS: SOLU-Medrol 125 MG VIAL IVP SCH (09:17)
[2017-10-15] MEDS: MUCINEX EXPECTORANT PO SCH ×2 (09:17→21:33)
[2017-10-15] MEDS: NORCO 7.5/325 MG TAB PO PRN ×2 (09:17→21:34)
[2017-10-15] MEDS: BROVANA IN SCH ×2 (09:32→21:21)
[2017-10-15] MEDS: ATIVAN TAB 0.5 MG PO PRN (21:34)
[2017-10-16] MEDS: DUONEB 0.5 MG/3 MG NEB SCH ×6 (01:53→20:02)
[2017-10-16] MEDS: NORCO 7.5/325 MG TAB PO PRN ×2 (06:00→20:08)
[2017-10-16] MEDS: NEURONTIN TAB 600 MG PO SCH ×3 (06:26→21:01)
[2017-10-16] MEDS: NYSTATIN SUSP PO SCH ×5 (07:07→20:07)
[2017-10-16] MEDS: SOLU-Medrol 125 MG VIAL IVP SCH (08:20)
[2017-10-16] MEDS: PriLOSEC PO SCH (08:20)
[2017-10-16] MEDS: CORDARONE TAB 200 MG PO SCH (08:20)
[2017-10-16] MEDS: COLACE CAP 100 MG PO SCH (08:20)
[2017-10-16] MEDS: LOPRESSOR TAB 25 MG PO SCH (08:21)
[2017-10-16] MEDS: LASIX PO SCH (08:21)
[2017-10-16] MEDS: MUCINEX EXPECTORANT PO SCH ×2 (08:21→20:09)
[2017-10-16] MEDS: BROVANA IN SCH ×2 (09:50→20:02)
[2017-10-16 12:17] LABS: BASOPHILS % (AUTO) 0.1 % (0.2-1.0); HEMATOCRIT 26.2 % (36.0-47.0); HEMOGLOBIN 8.4 g/dL (12.0-16.0); LYMPHOCYTES # (AUTO) 0.3 X10^3/uL (1.3-2.9); LYMPHOCYTES % (AUTO) 7.8 % (21.0-51.0); MEAN CORPUSCULAR HEMOGLOBIN 24.2 pg (27.0-34.0); MEAN CORPUSCULAR HGB CONC 32.1 g/dL (33.0-35.0); MEAN CORPUSCULAR VOLUME 75.5 fL (80.0-100.0); MEAN PLATELET VOLUME 7.7 fL (7.4-11.0); MONOCYTES # (AUTO) 0 x10^3/uL (0.3-0.8); MONOCYTES % (AUTO) 1.3 % (0.0-13.0); NEUTROPHILS # (AUTO) 3.2 x10^3/uL (2.2-4.8); NEUTROPHILS % (AUTO) 90.8 % (42.0-75.0); PLATELET COUNT 283 X10^3/uL (150.0-450.0); RED BLOOD COUNT 3.47 X10^6/uL (3.5-5.4); RED CELL DISTRIBUTION WIDTH 21.3 % (11.6-16.5); WHITE BLOOD COUNT 3.6 X10^3/uL (3.6-10.0)
[2017-10-16 12:30] LABS: ALBUMIN 3.1 g/dL (3.4-5.0); CALCIUM 8.5 mg/dL (8.5-10.1); CARBON DIOXIDE 31.6 mmol/L (21-32); COR CA(FOR HYPOALB) 9.2 mg/dL (8.5-10.1); CREATININE 1.26 mg/dL (0.55-1.02); TOTAL PROTEIN 7.2 g/dL (6.4-8.2)
--- NOTE | 2017-10-16 12:34 | RAD ---
Examination: Portable AP chest History: Pneumonia Comparison reference 10/14/2017 Findings: Continued cardiac prominence with pulmonary hypo inflation. Persistent opacity at the right base, obscuring the diaphragm and costophrenic angle. No change in position of pacemaker. Impression: No significant change. Persistent airspace disease right lower lung, partly obscured on t he current study by the pacemaker device. Reported By:
[2017-10-16 13:16] LABS: PLATELET MORPHOLOGY COMMENT NORMAL (NORMAL)
[2017-10-16 13:17] LABS: ANISOCYTOSIS 1+
[2017-10-16] MEDS: MAALOX or MYLANTA PO PRN (20:07)
[2017-10-16] MEDS: MILK OF MAGNESIA PO PRN (20:07)
[2017-10-16] MEDS: ATIVAN TAB 0.5 MG PO PRN (20:12)
[2017-10-17] MEDS: DUONEB 0.5 MG/3 MG NEB SCH ×6 (01:05→21:43)
[2017-10-17] MEDS: NEURONTIN TAB 600 MG PO SCH ×3 (05:05→22:17)
[2017-10-17] MEDS: COLACE CAP 100 MG PO SCH (08:31)
[2017-10-17] MEDS: LOPRESSOR TAB 25 MG PO SCH (08:32)
[2017-10-17] MEDS: PriLOSEC PO SCH (08:32)
[2017-10-17] MEDS: CORDARONE TAB 200 MG PO SCH (08:32)
[2017-10-17] MEDS: LASIX PO SCH (08:32)
[2017-10-17] MEDS: SOLU-Medrol 125 MG VIAL IVP SCH (08:33)
[2017-10-17] MEDS: NYSTATIN SUSP PO SCH ×4 (08:33→20:48)
[2017-10-17] MEDS: MUCINEX EXPECTORANT PO SCH ×2 (08:33→20:45)
[2017-10-17] MEDS: BROVANA IN SCH ×2 (09:26→21:43)
[2017-10-17] MEDS: NORCO 7.5/325 MG TAB PO PRN (14:24)
[2017-10-17] MEDS: ATIVAN TAB 0.5 MG PO PRN ×2 (14:25→20:46)
[2017-10-17] MEDS ORDERED: PROVENTIL NEB TX 0.083% 2.5MG/ 3ML NEB PRN (15:47)
[2017-10-17] MEDS: K-DUR TAB 20 MEQ PO SCH (17:28)
[2017-10-17] MEDS: MAALOX or MYLANTA PO PRN (18:56)
[2017-10-17] MEDS: MILK OF MAGNESIA PO PRN (20:45)
[2017-10-17] MEDS ORDERED: DESYREL PO SCH (21:00)
[2017-10-17] MEDS: PULMICORT NEB TX 0.5 MG NEB SCH (21:43)
[2017-10-18] MEDS: DUONEB 0.5 MG/3 MG NEB SCH ×4 (00:59→12:28)
[2017-10-18 04:36] LABS: BASOPHILS % (AUTO) 0.9 % (0.2-1.0); EOSINOPHILS % (AUTO) 0.1 % (0.9-2.9); HEMATOCRIT 25.4 % (36.0-47.0); HEMOGLOBIN 8.2 g/dL (12.0-16.0); LYMPHOCYTES # (AUTO) 0.7 X10^3/uL (1.3-2.9); LYMPHOCYTES % (AUTO) 21.1 % (21.0-51.0); MEAN CORPUSCULAR HEMOGLOBIN 24.5 pg (27.0-34.0); MEAN CORPUSCULAR HGB CONC 32.2 g/dL (33.0-35.0); MEAN CORPUSCULAR VOLUME 76.1 fL (80.0-100.0); MEAN PLATELET VOLUME 7.7 fL (7.4-11.0); MONOCYTES # (AUTO) 0.2 x10^3/uL (0.3-0.8); MONOCYTES % (AUTO) 6.9 % (0.0-13.0); NEUTROPHILS # (AUTO) 2.3 x10^3/uL (2.2-4.8); PLATELET COUNT 264 X10^3/uL (150.0-450.0); RED BLOOD COUNT 3.34 X10^6/uL (3.5-5.4); WHITE BLOOD COUNT 3.3 X10^3/uL (3.6-10.0)
[2017-10-18 04:50] LABS: ALANINE AMINOTRANSFERASE 12 Units/L (12-78); ALBUMIN 2.6 g/dL (3.4-5.0); ALKALINE PHOSPHATASE 72 Units/L (46-116); ASPARTATE AMINO TRANSFERASE 18 Units/L (15-37); BLOOD UREA NITROGEN 24 mg/dL (7-18); CALCIUM 7.7 mg/dL (8.5-10.1); CARBON DIOXIDE 31.9 mmol/L (21-32); CHLORIDE 100 mmol/L (98-107); COR CA(FOR HYPOALB) 8.8 mg/dL (8.5-10.1); SODIUM 139 mmol/L (136-145); TOTAL PROTEIN 5.9 g/dL (6.4-8.2); eGFR BLACK RACES > 60 (>60); eGFR NON BLACK RACES 51 (>60)
[2017-10-18] MEDS: NEURONTIN TAB 600 MG PO SCH ×2 (05:28→14:20)
[2017-10-18 05:57] LABS: PLATELET MORPHOLOGY COMMENT NORMAL (NORMAL)
[2017-10-18 05:58] LABS: ANISOCYTOSIS 1+; HYPOCHROMASIA SLIGHT
--- NOTE | 2017-10-18 07:09 | RAD ---
Examination: Portable AP chest History: COPD Comparison reference 10/16/2017 Findings: Stable heart size with clear upper lungs. Diminished lung volumes with diaphragm elevation. Persistent airspace disease right lower lobe partly obscured by the pacemaker generator. There is no evidence for developing pneumothorax or pulmonary edema. Impression: Suspect persistent infiltrate or atelectasis right base, see above. No interval change si nce 2 days prior. Reported By:
[2017-10-18] MEDS: CORDARONE TAB 200 MG PO SCH (08:29)
[2017-10-18] MEDS: K-DUR TAB 20 MEQ PO SCH (08:29)
[2017-10-18] MEDS: MUCINEX EXPECTORANT PO SCH (08:29)
[2017-10-18] MEDS: NYSTATIN SUSP PO SCH ×2 (08:29→14:20)
[2017-10-18] MEDS: COLACE CAP 100 MG PO SCH (08:30)
[2017-10-18] MEDS: LASIX PO SCH (08:30)
[2017-10-18] MEDS: LOPRESSOR TAB 25 MG PO SCH (08:30)
[2017-10-18] MEDS: PriLOSEC PO SCH (08:30)
[2017-10-18] MEDS ORDERED: LANOXIN PO SCH (09:00)
[2017-10-18] MEDS ORDERED: PATIENT'S HOME MEDICATION (Potassium Chloride [Potassium Chloride] 20 MEQ) PO SCH (09:00)
[2017-10-18] MEDS: BROVANA IN SCH (09:11)
[2017-10-18] MEDS: PULMICORT NEB TX 0.5 MG NEB SCH (09:11)
[2017-10-18 13:49] VITALS: BP 117/55
[2017-10-18] MEDS: NORCO 7.5/325 MG TAB PO PRN (14:20)
[2017-10-18] MEDS: ATIVAN TAB 0.5 MG PO PRN (14:20)
== END 2017-10-18 14:50 | DRG 190 ==
LOC: ER 14:28 → ICU 16:17
PROVIDERS: ADMIT Internal Medicine; ATTEND Internal Medicine
DX: J44.1 Chronic obstructive pulmonary disease with (acute) exacerbation (principal); J18.8 Other pneumonia, unspecified organism; R06.09 Other forms of dyspnea; I50.9 Heart failure, unspecified; I25.10 Atherosclerotic heart disease of native coronary artery without angina pectoris; K21.9 Gastro-esophageal reflux disease without esophagitis; I10 Essential (primary) hypertension; R09.02 Hypoxemia; R94.31 Abnormal electrocardiogram [ECG] [EKG]; R06.02 Shortness of breath; I48.91 Unspecified atrial fibrillation
CPT/HCPCS: 36415; 36600; 71010; 80053; 80162; 81001; 82550; 82553; 82803; 84484; 85025; 87040; 87086; 93005; 93010; 94640; 94660; 96365; 96374; 97535; 99231; 99238; 99284; A4216; A4618; A7030; J2930; J7620; J7626